=== PATIENT | female | born 2000 | race Two or more races ===

== ENCOUNTER 2023-09-20 20:15 | Emergency (ER) | payer OTHER, SELFPAY ==
[2023-09-20 21:05] VITALS: BP 136/65; PULSE 71; RESP 18; TEMP 36.7; O2SAT 99; BMI 30.9
== END 2023-09-21 00:48 | disposition left against medical advice (07) ==
LOC: HO.ED 09-21 00:45
PROVIDERS: Emergency Provider Emergency Medicine
DX: R50.9 Fever, unspecified (principal); R60.9 Edema, unspecified
CPT/HCPCS: 99281

== ENCOUNTER 2024-07-11 22:42 | Emergency (ER) | payer OTHER, SELFPAY ==
--- NOTE | ~2024-07-11 | US_ITS ---
EXAMINATION: Ultrasound pelvis transabdominal transvaginal. Ultrasound renal bilateral. CLINICAL INDICATION: Low abdominal and back pain. Suprapubic pain with nausea. COMPARISON: None. TECHNIQUE: Transabdominal and transvaginal imaging of pelvis is performed. In addition retroperitoneal ultrasound with attention the kidneys was performed. FINDINGS: PELVIC ULTRASOUND: The uterus is anteverted, anteflexed and measures 7.4 x 2.8 x 4.0 cm. It is homogeneous in echotexture with no focal lesion seen. Endometrial thickness measures 0.6 cm. Right ovary measures 2.9 x 2.7 x 2.6 cm and volume 10.7 mL and appears unremarkable. Left ovary measures 2.4 x 2.2 x 2.3 cm in volume 6.4 mL. No focal lesion seen. There is normal arterial and venous flow seen to both ovaries on Doppler exam. There is no free fluid in the cul-de-sac. RENAL ULTRASOUND: Right kidney: The right kidney measures 10.5 x 5.5 x 5.6 cm. There is normal cortical thickness. There are tiny echogenic foci without Trinkle artifact. No caliectasis or hydronephrosis seen. Left kidney: The left kidney measures 10.4 x 6.3 x 6.0 cm. There is normal cortical thickness without cystic or solid mass. Tiny echogenic foci without twinkle artifact. No hydronephrosis or caliectasis. US/US pelvic and transvaginal IMPRESSION: Unremarkable pelvic ultrasound. Unremarkable renal ultrasound. Electronically signed by: Erwin Beltran MD 07/12/2024 08:27 AM DIV[facility]
--- NOTE | ~2024-07-11 | US_ITS ---
EXAMINATION: Ultrasound pelvis transabdominal transvaginal. Ultrasound renal bilateral. CLINICAL INDICATION: Low abdominal and back pain. Suprapubic pain with nausea. COMPARISON: None. TECHNIQUE: Transabdominal and transvaginal imaging of pelvis is performed. In addition retroperitoneal ultrasound with attention the kidneys was performed. FINDINGS: PELVIC ULTRASOUND: The uterus is anteverted, anteflexed and measures 7.4 x 2.8 x 4.0 cm. It is homogeneous in echotexture with no focal lesion seen. Endometrial thickness measures 0.6 cm. Right ovary measures 2.9 x 2.7 x 2.6 cm and volume 10.7 mL and appears unremarkable. Left ovary measures 2.4 x 2.2 x 2.3 cm in volume 6.4 mL. No focal lesion seen. There is normal arterial and venous flow seen to both ovaries on Doppler exam. There is no free fluid in the cul-de-sac. RENAL ULTRASOUND: Right kidney: The right kidney measures 10.5 x 5.5 x 5.6 cm. There is normal cortical thickness. There are tiny echogenic foci without Trinkle artifact. No caliectasis or hydronephrosis seen. Left kidney: The left kidney measures 10.4 x 6.3 x 6.0 cm. There is normal cortical thickness without cystic or solid mass. Tiny echogenic foci without twinkle artifact. No hydronephrosis or caliectasis. US/US renal BI IMPRESSION: Unremarkable pelvic ultrasound. Unremarkable renal ultrasound. Electronically signed by: Erwin Beltran MD 07/12/2024 08:27 AM [facility]
--- NOTE | ~2024-07-11 | US_ITS ---
EXAMINATION: Ultrasound pelvis transabdominal transvaginal. Ultrasound renal bilateral. CLINICAL INDICATION: Low abdominal and back pain. Suprapubic pain with nausea. COMPARISON: None. TECHNIQUE: Transabdominal and transvaginal imaging of pelvis is performed. In addition retroperitoneal ultrasound with attention the kidneys was performed. FINDINGS: PELVIC ULTRASOUND: The uterus is anteverted, anteflexed and measures 7.4 x 2.8 x 4.0 cm. It is homogeneous in echotexture with no focal lesion seen. Endometrial thickness measures 0.6 cm. Right ovary measures 2.9 x 2.7 x 2.6 cm and volume 10.7 mL and appears unremarkable. Left ovary measures 2.4 x 2.2 x 2.3 cm in volume 6.4 mL. No focal lesion seen. There is normal arterial and venous flow seen to both ovaries on Doppler exam. There is no free fluid in the cul-de-sac. RENAL ULTRASOUND: Right kidney: The right kidney measures 10.5 x 5.5 x 5.6 cm. There is normal cortical thickness. There are tiny echogenic foci without Trinkle artifact. No caliectasis or hydronephrosis seen. Left kidney: The left kidney measures 10.4 x 6.3 x 6.0 cm. There is normal cortical thickness without cystic or solid mass. Tiny echogenic foci without twinkle artifact. No hydronephrosis or caliectasis. US/US pelvic ovarian doppler IMPRESSION: Unremarkable pelvic ultrasound. Unremarkable renal ultrasound. Electronically signed by: Erwin Beltran MD 07/12/2024 08:27 AM [facility]
[2024-07-11 23:37] VITALS: BP 105/54; PULSE 82; RESP 16; TEMP 36; O2SAT 98; BMI 32.1
[2024-07-12 00:07] LABS: MANUAL DIFF FLAG NO
[2024-07-12 00:09] LABS: Basophils Absolute Auto 0.1 X10*3/uL (0.0-0.2); Basophils Percent Auto 0.5 % (0-2); Eosinophils Absolute Auto 0.2 X10*3/uL (0.0-0.4); Hematocrit 39.8 % (37.0-47.0); Hemoglobin 13.6 g/dl (12.0-16.0); Imm Gran Abs Auto 0.04 X10*3/uL (0.00-0.03); Imm Gran Pct Auto 0.4 % (0.0-0.4); Lymphocytes Percent Auto 41.4 % (20-40); Mean Corpuscular HGB Conc 34.2 g/dl (31.0-35.0); Mean Corpuscular Hemoglobin 29.6 pg (27.0-33.0); Mean Corpuscular Volume 86.7 fL (80.0-98.0); Mean Platelet Volume 9.3 fL (9.4-12.3); Monocytes Absolute Auto 0.8 X10*3/uL (0.1-1.2); Monocytes Percent Auto 8.3 % (2-11); Neutrophils Absolute Auto 4.6 x10*3/uL (2.0-8.3); Neutrophils Percent Auto 47.4 % (45-73); Platelet Count 313 X10*3/uL (160-400); Red Blood Count 4.59 X10*6/uL (4.20-5.50); Red Cell Distribution Width 12.6 % (11.0-16.0); White Blood Count 9.6 X10*3/uL (4.8-10.8)
[2024-07-12 00:21] LABS: Alanine Aminotransferase 23 U/L (0-31); Albumin Level 4.3 g/dL (3.5-5.0); Alkaline Phosphatase 61 U/L (39-117); Anion Gap 12 (12-20); Aspartate Amino Transferase 21 U/L (5-31); Bilirubin Total 0.2 mg/dL (0.0-1.0); Blood Urea Nitrogen 13 mg/dL (9-16); Calcium 9.6 mg/dL (8.4-10.2); Carbon Dioxide 23 mmol/L (22-29); Chloride 109 mmol/L (96-108); Estimated Glomerular Filt Rate > 60; Glucose Random 110 mg/dL (60-115); Potassium 3.8 mmol/L (3.3-5.1); Sodium 140 mmol/L (135-145); Total Protein 7.7 g/dL (6.5-8.0)
[2024-07-12 03:52] VITALS: BP 127/60; PULSE 80; RESP 16; TEMP 37.1; O2SAT 99
--- NOTE | 2024-07-12 03:52 | MHC.EDTECH ---
This pct just assumed care of Patient ,vitals taken ,Patient is aware we need a urine sample .
[2024-07-12 05:15] LABS: UPreg QC Valid YES; Urine Pregnancy NEGATIVE (NEGATIVE)
[2024-07-12 06:33] VITALS: BP 120/69; PULSE 67; RESP 16; TEMP 36.8; O2SAT 97
[2024-07-12 06:39] LABS: Appearance Urine Turbid; Color Urine Yellow; Glucose Urine UA Negative (Negative); Leukocyte Esterase Urine Negative (Negative); Nitrite Urine Negative (Negative); PH 5.5 (5.0-9.0); Specific Gravity - Urine >= 1.030 (1.005-1.025); Urine Blood Negative (Negative); Urine Ketones Negative (Negative); Urine Protein Negative (Neg-Trace)
[2024-07-12 06:44] LABS: Bacteria Urine 3+ (None Seen); Hyaline Casts Urine 0-2 /LPF (0-2); RBC Urine 0-2 /HPF (0-2); Squamous Epithelial Cell Urine >20 /HPF (0-2); UACC Culture Trigger YES
--- NOTE | 2024-07-12 07:01 | ED_ITS ---
HPI - Abdominal Pain General Chief Complaint: Abdominal Pain Stated Complaint: lower abdominal pain Time Seen by Provider: 07/12/24 06:35 Source: patient, RN notes reviewed and old records reviewed Mode of arrival: ambulatory History of Present Illness ED Provider: Peggy Kent PA-C HPI narrative: 23-year-old female no significant medical history presenting to the ED complaining lower abdominal/suprapubic pain x 3 days described as feeling like a pulled muscle. Also reports low back. Denies fever, chills, nausea, vomiting, dysuria/hematuria, vaginal bleeding/discharge. Denies injury/trauma Related Data Allergies Allergy/AdvReac Type Severity Reaction Status Date / Time No Known Allergies Allergy Verified 07/11/24 23:43 Review of Systems Review of Systems Yes all other systems are reviewed and are negative Constitutional: Reports as per [facility] Past Medical History Attestation statement: The following information was validated with the patient. Source: old records reviewed Social History Social History Use of substances other than those prescribed or required for medical reasons: No Advance Directives: No Advance Directives Information Provided: Yes Do you have a plan to hurt others: No Plan Patient : No Physical Exam ED Vital Signs: Vital Signs - 24 hr 07/11/24 23:37 07/12/24 03:52 07/12/24 06:33 Temperature 96.8 F 98.7 F 98.2 F Pulse Rate 82 80 67 Respiratory Rate 16 16 16 Blood Pressure 105/54 L 127/60 120/69 Pulse Oximetry 98 99 97 Oxygen Delivery Method Room Air Room Air Room Air 07/12/24 09:02 07/12/24 09:04 Temperature 98.2 F 98.2 F Pulse Rate 70 86 Respiratory Rate 18 18 Blood Pressure 118/86 118/86 Pulse Oximetry 99 99 Oxygen Delivery Method Room Air Room Air BMI result Body Mass Index 32.1 Const General: cooperative, healthy appearing and no acute distress Orientation/consciousness: patient oriented x3 Limitations: no limitations HENMT Head: Yes normal to inspection and Yes atraumatic Ears: hearing grossly normal bilaterally General nose exam: Normal external nose present Face and sinus: Yes normal facial exam Eyes General: appearance normal, both eyes and all related structures EOM: EOMs intact bilaterally Neck Neck: Yes normal visual inspection and Yes no meningeal signs Resp Effort & Inspection: normal respiratory effort and no respiratory distress Cardio Rate: regular rate GI Inspection: Yes normal to inspection Palpation (GI): Soft to palpation, nontender, no guarding and not rigid General: Yes no CVA tenderness Back/Spine/Pelvis Back: no CVA tenderness Skin Rashes: no rashes Wounds: no wounds Neuro General: patient oriented x3, tone normal and no meningeal signs Cranial nerves: Yes CN's II-XII intact bilaterally Gait exam (Neuro): Normal gait present Extrem General: Yes normal to inspection Course Course Course Narrative: -0847--labs reassuring. UA contaminated will hold on antibiotic initiation until culture results. negative US pelvic and transvaginal//US renal BI IMPRESSION: Unremarkable pelvic ultrasound. Unremarkable renal ultrasound. Results discussed with patient including worrisome signs and symptoms and strict return precautions, and when to return to the emergency department. They verbalized understanding and feel safe for discharge at this time. Medical Decision Making Medical Decision Making [facility] Narrative: 23-year-old female no significant medical history presenting to the ED complaining lower abdominal/suprapubic pain x 3 days described as feeling like a pulled muscle. On exam vital signs stable, NAD, nontoxic appearing, abdomen soft/nontender, no CVAT. Concern for ovarian cyst vs UTI vs ? Menstrual cramping vs . Lower suspicion for torsion or TOA. Rule out ectopic. Lower suspicion for appendicitis/diverticulitis/colitis. Renal stone on differential Plan: Labs, UA, pelvic and renal ultrasound, pain management, re-evaluate Please refer to course for remaining clinical decision making, interpretation of labs/imaging results, and discussions with consultants and/or family members. Differential Diagnosis Differential Diagnoses: The differential diagnosis associated with the presentation includes As above Admission/Observation Consideration of admission/observation: Escalation of care including admission/observation considered Lab Data [facility] Lab Attestation statement: I reviewed the patient's lab results. 07/12/24 00:02 07/12/24 00:02 Labs: Lab Results 07/12/24 07/12/24 Range/Units 00:02 04:52 WBC 9.6 (4.8-10.8) X10*3/uL RBC 4.59 (4.20-5.50) X10*6/uL Hgb 13.6 (12.0-16.0) g/dl Hct 39.8 (37.0-47.0) % MCV 86.7 (80.0-98.0) fL MCH 29.6 (27.0-33.0) pg MCHC 34.2 (31.0-35.0) g/dl RDW 12.6 (11.0-16.0) % Plt Count 313 (160-400) X10*3/uL MPV 9.3 L (9.4-12.3) fL Immature Gran % (Auto) 0.4 (0.0-0.4) % Neut % (Auto) 47.4 (45-73) % Lymph % (Auto) 41.4 H (20-40) % [place] % (Auto) 8.3 (2-11) % Eos % (Auto) 2.0 (0-4) % Baso % (Auto) 0.5 (0-2) % Lymph # (Auto) 4.0 (1.2-4.9) X10*3/uL [place] # (Auto) 0.8 (0.1-1.2) X10*3/uL Eos # (Auto) 0.2 (0.0-0.4) X10*3/uL Baso # (Auto) 0.1 (0.0-0.2) X10*3/uL Abs Immat Gran (auto) 0.04 H (0.00-0.03) X10*3/uL Absolute Neuts (auto) 4.6 (2.0-8.3) x10*3/uL Absolute Nucleated RBC 0.000 (0.0-0.012) X10*3/uL Nucleated RBC % (auto) 0.0 (0.0-0.2) /100WBC Sodium 140 (135-145) mmol/L Potassium 3.8 (3.3-5.1) mmol/L Chloride 109 H (96-108) mmol/L Carbon Dioxide 23 (22-29) mmol/L Anion Gap 12 (12-20) BUN 13 (9-16) mg/dL Creatinine 0.65 (0.5-1.4) mg/dL Estim Creat Clear Calc 151.0 Estimated GFR > 60 Random Glucose 110 (60-115) mg/dL Calcium 9.6 (8.4-10.2) mg/dL Total Bilirubin 0.2 (0.0-1.0) mg/dL AST 21 (5-31) U/L ALT 23 (0-31) U/L Alkaline Phosphatase 61 (39-117) U/L Total Protein 7.7 (6.5-8.0) g/dL Albumin 4.3 (3.5-5.0) g/dL Lipase 27 (8-78) U/L Urine Color Yellow Urine Appearance Turbid Urine pH 5.5 (5.0-9.0) Ur Specific [place] >= 1.030 H (1.005-1.025) Urine Protein Negative (Neg-Trace) mg/dL Urine Glucose (UA) Negative (Negative) mg/dL Urine Ketones Negative (Negative) mg/dL Urine Blood Negative (Negative) Urine Nitrite Negative (Negative) Ur Leukocyte Esterase Negative (Negative) Urine RBC 0-2 (0-2) /HPF Urine WBC 6-10 H (0-5) /HPF Ur Squamous Epith Cells >20 (0-2) /HPF Urine Bacteria 3+ (None Seen) Hyaline Casts 0-2 (0-2) /LPF Urine Test NEGATIVE (NEGATIVE) Independent Interpretation I performed an independent interpretation of an: Ultrasound Radiology Impression Discussion of test interpretation with radiology: I have reviewed the radiologist's reading. External Record Review External record reviewed: Inpatient record, Office record, Outpatient record, Prior outpatient labs, Prior outpatient radiology, Primary care record and Outside ED record Tests considered The following testing was considered but not selected: As above Prescription Management I considered prescription management with: Pain Medication Social Determinants Patient?s care significantly limited by Social Determinants of Health including: Other Social Determinant of Health Medications Administered Discontinued Medications Generic Name Dose Route Start Last Admin Trade Name Freq PRN Reason Stop Dose Admin Ketorolac Tromethamine 30 mg 07/12/24 07:04 07/12/24 07:12 Ketorolac Tromethamine 30 Mg/Ml Vial IM 07/12/24 07:05 30 mg ONCE ONE Administration Discharge Plan Discharge Clinical Impression: Abdominal pain, suprapubic Patient Disposition: Home, Self-Care Instructions: Abdominal Pain (ED) Additional Instructions: Your blood work and ultrasound are reassuring Please follow-up with your primary care doctor as well as your OBGYN If her symptoms persist or worsen, pain becomes more constant, unbearable, you have persistent nausea/vomiting or fever return to the ED Referrals: [facility] [place] Women's Services [Provider Group] Interventions: ED Discharge Assessment Last Done: 07/12/24 09:04 Discharge Date/Time: 07/12/24 09:04 Print Language: [place]
[2024-07-12 07:04] LABS: Lipase 27 U/L (8-78)
[2024-07-12] MEDS: Ketorolac Tromethamine 30 MG/ML VIAL IM (07:12)
--- NOTE | 2024-07-12 07:15 | PC.NURSE ---
Resumed care of pt at 0700. Pt up in bed with family at bedside, a/ox4, no increase wob/sob noted, lung sounds cta bilaterally, s1 and s2 heard, abdomen soft, tender on palpation. Pt states mid to lower abdominal pain/lower back pain. Medicated per SEP. Pt updated on plan of care, call vidal within reach, all needs met at this time.
[2024-07-12 09:02] VITALS: BP 118/86; PULSE 70; RESP 18; TEMP 36.8; O2SAT 99
[2024-07-12 09:04] VITALS: BP 118/86; PULSE 86; RESP 18; TEMP 36.8; O2SAT 99
== END 2024-07-12 09:04 | disposition home or self-care (01) ==
PROVIDERS: Physician Assistant; Emergency Provider Emergency Medicine
DX: R10.30 Lower abdominal pain, unspecified (principal)
CPT/HCPCS: 36415; 76775; 76830; 76856; 80053; 81001; 81025; 83690; 85025; 87086; 93975; 96372; 99284; J1885

== ENCOUNTER 2024-09-25 10:05 | Outpatient (AMB) | payer OTHER, SELFPAY ==
--- NOTE | 2024-09-25 10:37 | MHC.PC.OV ---
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 Could not recall any history of trauma to affected area. Complains of pain, discomfort when she bends forward, but denies chest pain or shortness of breath PFSH Medical History (Updated 09/25/24 @ 11:17 by Nellie Mckeon MD) Mass of anterior abdominal wall Depression with anxiety Surgical History (Updated 09/25/24 @ 11:08 by Nellie Mckeon MD) No pertinent past surgical history Family History (Updated 09/25/24 @ 11:07 by Nellie Mckeon MD) Mother Substance use disorder Mental health disorder Depression with anxiety Sister Substance use disorder Mental health disorder Depression with anxiety Maternal Grandmother Mental health disorder Depression with anxiety Essential hypertension Hypercholesterolemia CAD (coronary artery disease) Alzheimer's disease Maternal Aunt Mental health disorder Depression with anxiety Social History Housing: Apartment Patient Tobacco Use Status: Never used Tobacco e-Cigarette/Vaping Use: Former Use service: No Current occupational status: employed Cognitive needs: No Hearing needs: No Vision needs: Yes Female Reproductive History Menstrual Other: [facility]es [facility] , sees OBANANDN, states Pap smear was done earlier this year Questionnaire PHQ-9 Over the last 2 weeks, how often have you been bothered by any of the following problems? 1. Little interest or pleasure in doing things: several days 2. Feeling down, depressed, or hopeless: several days 3. Trouble falling or staying asleep, or sleeping too much: nearly every day 4. Feeling tired or having little energy: several days 5. Poor appetite or overeating: nearly every day 6. Feeling bad about yourself - or that you are a failure or have let yourself or your family down: several days 7. Trouble concentrating on things, such as reading the newspaper or watching television: not at all 8. Moving or speaking so slowly that other people could have noticed. Or the opposite - being so fidgety or restless that you have been moving around a lot more than usual: not at all 9. Thoughts that you would be better off or of hurting yourself in some way: not at all Total score: 10 Depression Screening Interpretation: Positive Depression Screening Follow-up: Existing condition and Declines treatment (Uses marijuana to control symptoms, helping) Depression Screening Done: Yes Source: Developed by Drs. Joey Ghotra, Madelyn Plummer, Petros Peck and colleagues, with an educational lise from [employer]. Thrive Questionnaire Date Thrive assessed: 09/25/24 I am a: Patient What is your living situation today?: I have a steady place to live Within the past 12 months, did the food you bought not last and you didn't have the money to get more?: Sometimes True Within the past 12 months, did you worry whether your food would run out before you got money to buy more?: Sometimes True Do you have trouble paying for medicines?: No Do you have trouble getting transportation to medical appointments?: No Do you have trouble paying your heating and electricity bill?: No Do you have trouble taking care of your child, family member or friend?: No Do you have trouble with day-to-day activities such as bathing, preparing meals, shopping, managing finances, etc.?: No Are you currently unemployed and looking for a job?: No Are you interested in more education?: Yes Please select the resources that you would like help with: None Currently or been in a relationship where the following occur: I choose not to answer THRIVE Score: 2 AUDIT C Alcohol Use Questionnaire (AUDIT-C) 1. How often do you have a drink containing alcohol?: Never Total Score: 0 WENDY-7 AMB Questionnaire WENDY-7 Date WENDY - 7 assessed: 09/25/24 Feeling nervous, anxious, or on edge: 1 = Several days Not being able to stop or control worryin = More than half the days Worrying too much about different things: 2 = More than half the days Trouble relaxin = Several days Being so restless that it is hard to sit still: 1 = Several days Becoming easily annoyed or irritable: 2 = More than half the days Feeling afraid as if something awful might happen: 1 = Several days Total WENDY-7 score (0-4 normal; 5-9 mild; 10-14 moderate; 15-21 severe): 10 Source: Developed by Drs. Joey Ghotra, Madelyn Plummer, Petros Peck and colleagues, with an educational lise from [employer]. WENDY-7 Assessment Billing WENDY-7 Assessment Tool: WENDY-7 Assessment 82490 (Uses marijuana to help control her anxiety attacks which has been helping, per patient) Review of Systems Const Reports no additional complaints ENT Details: Goes to [facility] in [place] cleaning every 6 Reports no additional complaints Card Denies chest pain, Denies chest pain with activity, Denies rapid heart rate, Denies irregular heart rhythm, Denies lightheadedness and Denies dyspnea Resp Denies cough, Denies pain on inspiration and Denies dyspnea GI Denies bloating, Denies change in bowel habits, Denies change in stool character and Denies dyspepsia Details: s Reports no additional complaints Musc Reports as per HPI Neuro Reports no additional complaints Psych Reports as per HPI Physical exam (Primary Care) Vital Signs: Last Vital Signs Temp 98.0 F 09/25/24 10:40 Pulse 95 09/25/24 10:40 BP 120/70 09/25/24 10:40 Pulse Ox 95 09/25/24 10:40 Oxygen Delivery Method Room Air 09/25/24 10:40 BMI result Body Mass Index 31.9 Tobacco/Smoking Status: Tobacco use Status Tobacco use date assessed 09/25/24 09/25/24 10:51 Patient Tobacco Use Status Never used Tobacco 09/25/24 10:51 e-Cigarette/Vaping Use Former Use 09/25/24 10:51 PHQ-9: PHQ-9 Score PHQ-9: Total score 15 09/25/24 11:11 Depression Screening Interpretation: Positive Depression Screening Follow-up: Existing condition and Declines treatment (Uses marijuana to control symptoms, helping) Thrive Assessment: Date of Thrive Assessment Date Thrive assessed 09/25/24 09/25/24 10:51 Currently or been in a relationship where the following occur: I choose not to answer Const General: no acute distress and alert Orientation/consciousness: patient oriented x3 HENMT Ears: external ears normal General nose exam: Normal external nose present Mouth: Normal oral and palatal mucosa present, oropharynx normal and moist mucous membranes Eyes General: appearance normal, both eyes and all related structures Neck Neck: Yes full ROM, Yes no lymphadenopathy and Yes supple Resp Effort & Inspection: normal respiratory effort and able to speak in complete sentences Auscultation: clear to auscultation bilaterally Cardio Rate: regular rate Rhythm: regular rhythm Heart sounds: S1 normal heart sound present and S2 normal heart sound present GI Other: Soft fluctuant mass on left upper quadrant, nontender to palpation, no overlying erythema or increased warmth Palpation (GI): Soft to palpation and nontender Auscultation: normal bowel sounds Neuro General: patient oriented x3, gait normal, tone normal, moves all extremities, Normal light touch and pain sensation and no focal motor deficits Cranial nerves: Yes CN's II-XII intact bilaterally Cognition (Neuro): normal cognition Extrem General: Yes full ROM, Yes no joint enlargement, Yes no clubbing, cyanosis or edema and Yes no calf tenderness Psych Appearance: grossly normal and well kempt Mental Status: mental status grossly normal Speech and movement: Normal speech and movement present Affect: normal affect Attitude: cooperative Thought process: Normal thought process present Thought content: Normal thought content present Coding Level of Care Code New Pt Level 3 (06247) Diagnoses Mass of anterior abdominal wall R22.2 Depression with anxiety F41.8 Additional Codes WENDY-7 Assessment Billing - WENDY-7 Assessment Tool: WENDY-7 Assessment 19340 ([id number]) Assessment & Plan Assessment & Plan (1) Mass of anterior abdominal wall: Code(s): R22.2 - Localized swelling, mass and lump, trunk Category: Medical Plan: Will order ultrasound of abdomen, for further evaluation management, (2) Depression with anxiety: Comment: Uses marijuana which helps control her anxiety and depression Code(s): F41.8 - Other specified anxiety disorders Category: Medical Plan: Patient states that she is managing her depression anxiety well with using marijuana Orders: Orders US abdomen complete Today R22.2 - Localized swelling, mass and lump, trunk
[2024-09-25 10:40] VITALS: BP 120/70; PULSE 95; TEMP 36.7; O2SAT 95; BMI 31.9
--- OUTSIDE RECORDS SUMMARY | 2024-09-25 11:37 | XMS_ITS ---
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 Medication SIG (Take, Route, Frequency, Duration) Notes Start Date End Date Status Lotrisone 1-0.05% 1 application to affected area externally Twice a day for 7 days 11/08/2021 Unknown Fluconazole 150 MG 1 tablet PO now and in 3d for 3 days 10/19/2021 Unknown metroNIDAZOLE 500 MG 1 tablet Orally Twi ce a day for 7 days 10/19/2021 Unknown MetroGel-Vaginal 0.75 % 1 application at bedtime Vaginal Once a day for 5 day(s) 03/29/2021 Unknown NuvaRing 0.12-0.015 MG/24HR 1 ring Vagin al _insert for 3w, remove fourth week for 84 days 07/11/2016 Unknown Multivitamin Adult - Orally Unknown Encounters Encounter Location Date Provider Diagnosis [facility] [place] [address] 02/15/2024 CONG RAPP Encounter for gynecological examination [...] Follow Up: 1 Year, Reason: Y early Puller Through Exam Provider Name:CONG Vicente, 04/17/2025 03:00:00 PM, [address], [address], [place], [address], Progress Notes * PANCHOCHRISCHRISTINEB:11/2000 (23 yo F)Acc No.[id number]:02/15/2024 PROGRESS NOTES Patient:?PANCHO CHRIS CHRISTINE Provider:?CONG RAPP MD :2000???Age:23 Y???Sex:Female D ate:02/15/2024 Address:[address] [place], [place] [id number] Subjective: * Chief Complaints: * ???1. 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 ?She has been in state of good health since her last exam. She has the following concerns: ?She has received just one dose of the Moderna Covid-19 vaccine. ?Relationship status: *partnered for nearly 2 years. She is sexually active. Sexual partner(s): male. She does *not wish to have STI testing. She accepts CDC-recommended GC/CT screening. ?Menses: *monthly, lasting 4-7 days, moderate to light flow. No intermenstrual bleeding. ?Contraception: *Nuvaring - happy and consistent. Would like refills. ?The patient has never had an abnormal pap smear. Her most recent pap smear was 10/27/20 - NIL . Next due for pap in 2023. ?The patient does* exercise. She exercises x 1 days/week by walking/hiking. * ROS:?Annual Puller Through Exam ROS:?Bowel habit changes?denies.?Bladder symptoms?denies.?Vaginal discharge, unusual?denies.?Vaginal itch or odor?denies.?weight or appetite changes?denies.?Chest pains, SOB?denies.?depression?denies.?Breast:?Denies?Breast lump.?Denies?Nipple discharge.?Hematology:?Denies?Swollen glands.?Skin:?Patient denies?changing moles.?Psychiatric:?Denies?Anxiety.? * Medical History:?Excessive a nd frequent menstruation with irregular cycle, Superficial (introital) dyspareunia, Unspecified abdominal pain, Gonococcal infection of lower genitourinary tract, unspecified, Other specified abnormal uterine and vaginal bleeding, Mastodynia, COVID-19. * Puller Through History:?/ Para?0/0.?Sexual activity?currently sexually active.?Last Pap Smear:?10/27/2020 NIL.?Mammogram:?not due per age.?LMP and menses?11/16/2022, 04/27/2022, 03/27/2022, 10/25/2021, 06/20/22, 05/2021, 03/15/2021, 11/10/20, regular.?History of STD's:?Gonorrhea Treated 07/16/20.? Control:?Nuva Ring.?Gardasil:?series completed.? * OB History:?Total pregnancies?.? * Medications:?Unknown Multivi tamin Adult - Tablet Orally , Unknown NuvaRing 0.12- 0.015 MG/24HR Ring 1 ring Vaginal _insert for [...] bedtime Vaginal Once a day Objective: * Vitals:? * Examination: ???General Examination: ?GENERAL APPEARANCE:?in no acute distress,well developed, well nourished,distributed generation project manager present in room.?HEAD:?normocephalic, atraumatic.?NECK/THYROID:?neck supple, full range of motion,thyroid normal.?LYMPH NODES:?no axillary or supraclavicular adenopathy.?SKIN:?normal,good turgor,no rashes,no suspicious lesions.?BREASTS:?normal,no dimpling,no discharge,no drainage,no masses palpable bilaterally,nontender.?ABDOMEN:?soft, non-tender, non distended without masses or hepatosplenomegay.?BACK:?no costovertebral angle tenderness.?FEMALE GENITOURINARY:?Vulva without lesions or masses, vagina pink without abnormal discharge, lesions or masses, cervix appears normal and is not tender to palpation, uterus is normal size, mobile, nontender and anteverted, ovaries are not palpable.?NEUROLOGIC:?alert and oriented,gait normal.?PSYCH:?alert, oriented,cognitive function intact,cooperative with exam,good eye contact,mood/affect full range,speech clear.? Assessment: * Assessment: 1.?Encounter for gynecologic al examination (general) (routine) without abnormal findings - Z01.419 (Primary)???2.?Encounter for screening for infections with a predominantly sexual mode of transmission - Z11.3??? Plan: * Treatment: * Follow Up:?1 Year (Reason: Y early Puller Through Exam) * Images: Wenceslaoing Information: * Visit Code:? 04346 Preventive Care Est Pt. Age 18-39. * Procedure Codes:? 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 She has been in state [...] General Examination GENERAL APPEARANCE: in no ac [place] distress, well developed, well nourished, distributed generation project manager present in room HEAD: normocephalic, atrau [...]
--- OUTSIDE RECORDS SUMMARY | 2024-09-25 11:37 | XMS_ITS ---
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 [address] [place] [address] 03/04/2024 CONG RAPP Encounter for gynecological examination [...] Follow Up: 1 Year, Reason: Y early Interventional Radiology Rn Exam Provider Name:CONG Vicente, 04/17/2025 03:00:00 PM, [address], [address], [place], [address], Progress Notes * CATHERINE DELEONDOB:11/2000 (23 yo F)Acc No.[id number]:03/04/2024 PROGRESS NOTES Patient:?CHRIS DELEON Provider:?CONG RAPP MD :2000???Age:23 Y???Sex:Female D ate:03/04/2024 Address:[address] [place], [place] [id number] Subjective: * Chief Complaints: * ???1. 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 ?She has been in state [...] x 1 days/week by walking/hiking. 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 * Medical History:?Excessive a nd frequent menstruation with irregular cycle, Superficial (introital) dyspareunia, Unspecified abdominal pain, Gonococcal infection of lower genitourinary tract, unspecified, Other specified abnormal uterine and vaginal bleeding, Mastodynia, COVID-19. * Interventional Radiology Rn History:?/ Para?0/0.?Sexual activity?currently sexually active.?Last Pap Smear:?10/27/2020 NIL.?Mammogram:?not due per age.?LMP and menses?11/16/2022, 04/27/2022, 03/27/2022, 10/25/2021, 06/20/22, 05/2021, 03/15/2021, 11/10/20, regular.?History of STD's:?Gonorrhea Treated 07/16/20.? Control:?Nuva Ring.?Gardasil:?series completed.? * OB History:?Total pregnancies?.? Objective: * Vitals:? * Examination: ???General Examination: ?GENERAL APPEARANCE:?in no acute distress,well developed, well nourished,extension course counselor present in room.?HEAD:?normocephalic, atraumatic.?NECK/THYROID:?neck supple, full range [...] * Follow Up:?1 Year (Reason: Y early Interventional Radiology Rn Exam) * Images: Billing Information: * Visit Code:? 07963 Preventive Care Est Pt. Age 18-39. * Procedure Codes:? 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 She has been in state [...] General Examination GENERAL APPEARANCE: in no ac [place] distress, well developed, well nourished, extension course counselor present in room HEAD: normocephalic, atrau matic [...]
--- OUTSIDE RECORDS SUMMARY | 2024-09-25 11:38 | XMS_ITS ---
Author Organization [facility] Address [address] [place] [address] Care Team Providers Care Spice Blender Name Role Phone CONG RAPP Unavailable [phone] Allergies No Known Allergies Results Component Value Reference Range Notes Test, Urine Reviewed date:04/15/2024 02:32:09 PM Interpretation: Performing Lab: Notes/Report: Test, Urine NEG Urinalysis Reviewed date:04/15/2024 02:32:03 PM Interpretation: Performing Lab: Notes/Report: NITRITE NEG PH 6.0 PROTEIN TR S.G 1.015 WBC TR GLUCOSE NEG KETONES NEG UROBILINOGEN NEG BILIRUBIN TR BLOOD NEG Urine Culture, Routine-[id number] Reviewed date:04/18/2024 09:42:37 AM Interpretation: Performing Lab:[facility], [address], [address], [place], Phone - [phone], [facility] Notes/Report: Clinical Information:SRC: URINE Clinical Information:SRC: URINE Urine Culture, Routine Final report Result 1 Mixed urogenital chaya 10,000-25,000 colony forming units per mL No Urine Received TNP Test not performed. Brody top urine tube is for urine culture and is not suitable for urinalysis. TEST: [id number] Urinalysis, Complete [id number] IGP, CtNg, Cultur e Under 30 Reviewed date:04/21/2024 11:18:49 AM Interpretation: Performing Lab:[facility], [address], [address], [place], Phone - [phone], Director - [facility] Notes/Report: Clinical Information:Cervical, LMP: 03/11/24 [id number] LMP / Prev Treat...[id number] Dates / Results....10/27/20 NIL No. of containers..01 ThinPrep Vial DIAGNOSIS: NEGATIVE FOR IN TRAEPITHELIAL LESION OR MALIGNANCY. Specimen adequacy: Satisfact ory for evaluation. No endocervical component is identified. Clinician provided ICD10: Z01.419 Z72.51 Performed by: Cherri barker, Sanding Line Operator (ASCP) . . Note: The Pap smear is a screening test designed to aid in the detection of premalignant and malignant conditions of the uterine cervix. It is not a diagnostic procedure and should not be used as the sole means of detecting cervical cancer. Both false-positive and false-negative reports do occur. . Test Methodology: This liquid based ThinPrep(R) pap test was screened with the use of an image guided system. . The HPV DNA reflex criteria were not met with this specimen result therefore, no HPV testing was performed. . Chlamydia, Nuc. Acid Amp Negative Negative Gonococcus, Nuc. 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 No Points 0 Interpretation Negative Sexual History Question Answer Notes Had sex in the past 12 months (vaginal, oral, or anal)? Yes with Men only Use protection? Yes How often? Most of the time Prevention strategies discussed: Condoms Have you ever had a Sexually transmitted disease ? Yes GC? Yes Last menstrual period 06/23/20 Tobacco use other than smoking: Question Answer Notes Are you an other tobacco user? Yes V apes nicotine for anxiety/stress Section Notes: Raised by MGM Vital Signs Temperature 97.7 degrees Fahrenheit 04/15/20 24 Blood pressure systolic 120 mm Hg 04/15/20 24 Blood pressure diastolic 78 mm Hg 024 Height 64 in 04/15/2024 Weight 191 lbs 04/15/2024 BMI 32.78 kg/m2 04/15/2024 Encounters Encounter Location Date Provider Diagnosis [address] [place] [address] 04/15/2024 CONG RAPP Encounter for gynecological examination (general) (routine) without abnormal findings Z01.419 ; Encounter for screening for infections with a predominantly sexual mode of transmission Z11.3 ; High risk heterosexual behavior Z72.51 ; Encounter for surveillance of vaginal ring hormonal contraceptive device Z30.44 and Feeling of incomplete bladder emptying R39.14 Assessments Encounter Date Diagnosis (ICD Code) Assessment Notes Treatment Notes Treatment Clinical Notes Section Notes 04/15/2024 Encounter for gynecological examination (general) (routine) without abnormal findings (ICD-10 - Z01.419) Discussed cervical cancer screening with cytology every 3 years as per ASCCP guidelines. Advised continued annual pelvic exams. Patient encouraged to increase her level of exercise. SBE technique encouraged/taught. Safe sexual practices and STI prevention discussed. 04/15/2024 Encounter for screening for infections with a predominantly sexual mode of transmission (ICD-10 - Z11.3) 04/15/2024 High risk heterosexual behavior (ICD-10 - Z72.51) 04/15/2024 Encounter for surveillance of vaginal ring hormonal contraceptive device (ICD-10 - Z30.44) No contraindications to combined hormonal contraception use. Symptoms of thromboembolic events weree reviewed using the ACHES acronym. 04/15/2024 Feeling of incomplete bladder emptying (ICD-10 - R39.14) 04/15/2024 Other Plan Of Treatment Medication Medication Name Sig Start Date Stop Date Notes Etonogestrel-Ethinyl Estradi ol 0.12-0.015 MG/24HR [address] for 3 weeks, remove, and replace with a new ring after 7 day break Vaginal for 84 days Treatment Notes Assessment Notes Encounter for gynecological examination (general) (routine) without abnormal findings Discussed cervical cancer screening with cytology every 3 years as per ASCCP guidelines. Advised continued annual pelvic exams. Patient encouraged to increase her level of exercise. SBE technique encouraged/taught. Safe sexual practices and STI prevention discussed. Encounter for surveillance o f vaginal ring hormonal contraceptive device No contraindications to combined hormona l contraception use. Symptoms of thromboembolic events weree reviewed using the ACHES acronym. Next Appt Details Follow Up: 1 Year, Reason: Y early Collect On Delivery Clerk Exam Provider Name:CONG Barker MAYRA Vicente, 04/17/2025 03:00:00 PM, [address], [address], [place], [address], Procedure Notes * Category Sub-Category Detail Notes Wet Mount Clue cells None seen Hyphae No hyphae or buds Trichomonas None seen Progress Notes * MOUNA DELEONB:11/2000 (23 yo F)Acc No.[id number]:04/15/2024 PROGRESS NOTES Patient:?CHRIS DELEON Provider:?CONG RAPP MD :2000???Age:23 Y???Sex:Female D ate:04/15/2024 Address:[address] [place] [address] Subjective: * Chief Complaints: * ??? 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 ?She has been in state of good health since her last exam. She has the following concerns: she gets discomfort in her ovaries - about twice weekly, it is not dependent on her control. She also feels a pressure in her bladder, like she has to void, but she doesn't have to void. She also wonders if she has BV?She has received just one dose of the Moderna Covid-19 vaccine. ?Relationship status: partnered for nearly 2 years. She is sexually active. Sexual partner(s): male. She does not wish to have STI testing. She accepts CDC-recommended GC/CT screening. ?Menses: monthly, lasting 5-7 days, moderate to heavy?flow. No intermenstrual bleeding.? She stopped Nuvaring last month due to insurance issues, but would like to return to using it. ?Contraception: Nuvaring - happy and consistent. Would like refills. ?The patient has never had an abnormal pap smear. Her most recent pap smear was 10/27/20 - NIL . Next due for pap in 2023. ?The patient does exercise. She exercises x 5 days/week by walking/hiking at [facility]. * ROS:?Annual Collect On Delivery Clerk Exam ROS:?Bowel habit changes?denies.?Bladder symptoms?denies.?Vaginal discharge, unusual?denies.?Vaginal itch or odor?denies.?weight or appetite changes?denies.?Chest pains, SOB?denies.?depression? admits, denies SI/HI, never has had those thoughts, would be interested in a therapist.?Breast:?Denies?Breast lump.?Denies?Nipple discharge.?Hematology:?Denies?Swollen glands.?Skin:?Patient denies?changing moles.?Psychiatric:?Admits?Anxiety,?uses breathing exercises, uses cannabis, and an herbal supplement.? * Medical History:? * Collect On Delivery Clerk History:?/ Para?0/0.?Sexual activity?currently sexually active.?Last Pap Smear:?10/27/2020 NIL.?Mammogram:?not due per age.?LMP and menses?03/11/24.?History of STD's:?Gonorrhea Treated 07/16/20.? Control:?Nuva Ring.?Gardasil:?series completed.? * OB History:?Total pregnancies?.? * Surgical History:?Denies Pas t Surgical History * Hospitalization/Major Diagno stic Procedure:?Denies Past Hospitalization * Family History:?Mother: siomn chavez, estranged.?Father: alive, estranged.?Paternal Grand Mother: .?Paternal Grand Father: unknown.?Maternal Grand Mother: alive, heart disease, MS.?Maternal Grand Father: .?Maternal aunt: breast ca pre menocolon ca.? 7 sisters - well 2 brothers - well All share the same mother, but have different fathers. * Social History:?Tobacco Use:?Tobacco Use/Smoking?Are you a?nonsmoker ?Tobacco use other than smoking?Are you an other tobacco user??Yes Vapes nicotine for anxiety/stress ???Sexual History:?Sexual History?Had sex in the past 12 months (vaginal, oral, or anal)??Yes ?with?Men only ?Use protection??Yes ?How often??Most of the time ?Prevention strategies discussed:?Condoms ?Have you ever had a Sexually transmitted disease??Yes ?GC??Yes ?Last menstrual period?06/23/20 ?Details of Sexual History?Are you sexually active??Yes ???Drugs/Alcohol:?Drugs?Have you used drugs other than those for medical reasons in the past 12 months??Yes ?Marijuana??Yes daily, smokes - advised to consider alternative ways to use ?Alcohol Screen (Audit-C)?Did you have a drink containing alcohol in the past year??No ?Points?0 ?Interpretation?Negative ???Miscellaneous:?Children: yes. ?Domestic violence: no. ?Exercise: no. ?Home smoke detector use: yes. ?Living with: boyfriend's parents, boyfriend. ?Marital status: single, in relationship with male partner. 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 ?Sexual abuse: no. ?Sexually active: yes. ?Verbal abuse: no. ???Raised by [facility] [employer]. * Medications:?Not-TakingEtono gestrel-Ethinyl Estradiol 0.12-0.015 MG/24HR Ring INSERT 1 RING VAGINALLY FOR 3WEEKS, REMOVE FOURTH WEEK Not-Taking Etonogestrel-Ethinyl Estradiol 0.12-0.015 MG/24HR Ring INSERT 1 RING VAGINALLY FOR 3WEEKS, REMOVE FOURTH WEEK DiscontinuedFluconazole 150 MG Tablet 1 tablet PO now and in 3d Multivitamin Adult - Tablet Orally NuvaRing 0.12-0.015 MG/24HR Ring 1 ring Vaginal _insert for 3w, remove fourth week Lotrisone 1-0.05% cream 1 application to affected area externally Twice a day Fluconazole 150 MG Tablet 1 tablet PO now and in 3d metroNIDAZOLE 500 MG Tablet 1 tablet Orally Twice a day MetroGel-Vaginal 0.75 % Gel 1 application at bedtime Vaginal Once a day Discontinued Fluconazole 150 MG Tablet 1 tablet PO now and in 3d Discontinued Multivitamin Adult - Tablet Orally Discontinued NuvaRing 0.12-0.015 MG/24HR Ring 1 ring Vaginal _insert for 3w, remove fourth week Discontinued Lotrisone 1-0.05% cream 1 application to affected area externally Twice a day Discontinued Fluconazole 150 MG Tablet 1 tablet PO now and in 3d Discontinued metroNIDAZOLE 500 MG Tablet 1 tablet Orally Twice a day Discontinued MetroGel- Vaginal 0.75 % Gel 1 application at bedtime Vaginal Once a day * Allergies:?N.K.D.A.no[Allerg ies Verified] Objective: * Vitals:?Ht: 64 in, Wt:191lbs , BMI:32.78Index, BP:120/78mm Hg, Temp:97.7F. 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 Assessment: * Assessment: 1.?Encounter for screening f or infections with a predominantly sexual mode of transmission - Z11.3???2.?Encounter for gynecological examination (general) (routine) without abnormal findings - Z01.419 (Primary)???3.?High risk heterosexual behavior - Z72.51???4.?Encounter for surveillance of vaginal ring hormonal contraceptive device - Z30.44???5.?Feeling of incomplete bladder emptying - R39.14??? Plan: * Treatment: ?LAB: Test, Urine (Collection Date & Time - 04/15/2024)* ? Value Reference Range ? Test, Urine NEG ANNABELLE Shen 04/15/2024 01:20:00 PM EDT > ?LAB: Urinalysis (Collection Date & Time - 04/15/2024)* ? Value Reference Range ?NITRITE NEG * ?PH 6.0 * ?PROTEIN TR * ?S.G 1.015 * ?WBC TR * ?GLUCOSE NEG * ?KETONES NEG * ?UROBILINOGEN NEG * ?BILIRUBIN TR * ?BLOOD NEG Notes: Discussed cervical cancer screening with cytology every 3 years as per ASCCP guidelines. Advised continued annual pelvic exams. Patient encouraged to increase her level of exercise. SBE technique encouraged/taught. Safe sexual practices and STI prevention discussed. ??2.?Encounter for surveillance of vaginal ring hormonal contraceptive device? Refill Etonogestrel-Ethinyl Estradiol Ring, 0.12-0.015 MG/24HR, [address] for 3 weeks, remove, and replace with a new ring after 7 day break, Vaginal, 84 days, 3 Ring, Refills 4.? Notes: No contraindications to combined hormonal contraception use. Symptoms of thromboembolic events weree reviewed using the ACHES acronym.??3.?Feeling of incomplete bladder emptying?LAB: Urine Culture, Routine-[id number] * Procedures:?[place]et [place]:?Clue cells?None seen.?Hyphae?No hyphae or buds.?Trichomonas?None seen.? * Procedure Codes:? * Preventive Medicine:?https://www.psychologytoday.com/? for help finding a therapist There are risks to being on estrogen-containing contraception (pills, patch, vaginal ring.) The risks are low for healthy people. The risks increase with the presence of high blood pressure, diabetes, migraines with aura, a family history of clotting disorders and if you are a smoker over the age of 35. It appears to me that you have none of these risk factors. Despite not having risk factors, your risk is not zero. The biggest and scariest risk is the formation of blood clots in your blood vessels, which can lead to heart attacks, stroke, pulmonary embolism and . I want you to be aware of the warning signs using the ACHES acronym. You should call immediately with severe Abdominal pain, Chest pain, severe Headaches, Eye changes, or Severe leg cramps. ?SUNDAY start -- if your period starts on a Sunday, take your first pill that day. If your period starts any other day, wait until Sunday to take your first pill. Then take one pill every day. If you miss one, take it as soon as you think of it. If you miss more than one pill, the -prevention benefit disappears. * Follow Up:?1 Year (Reason: Y early Collect On Delivery Clerk Exam) * Images: Billing Information: * Visit Code:? 01756 Preventive Care Est Pt. Age 18-39. * Procedure Codes:? * Sign off status: Completed true * Provider:?CONG RAPP MD Date:?2023 Generated for Kaylan ocampo/Violetta/eTransmitting on:?09/25/2024 11:37 AM EST History and Physical Notes * HPI (History of Present Illness) Category Sub-Category Detail Notes Category Not es Constitutional Catherine is a 23yo G0 with LMP 03/11/24 who presents for her yearly nurse special annual exam. She has been in state of good health since her last exam. She has the following concerns: she gets discomfort in her ovaries - about twice weekly, it is not dependent on her control. She also feels a pressure in her bladder, like she has to void, but she doesn't have to void. She also wonders if she has BV? She has received just one dose of the Moderna Covid-19 vaccine. Relationship status: partnered for nearly 2 years. She is sexually active. Sexual partner(s): male. She does not wish to have STI testing. She accepts CDC-recommended GC/CT screening. Menses: monthly, lasting 5-7 days, moderate to heavy flow. No intermenstrual bleeding. She stopped Nuvaring last month due to insurance issues, but would like to return to using it. Contraception: Nuvaring - happy and consistent. Would like refills. The patient has never had an abnormal pap smear. Her most recent pap smear was 10/27/20 - NIL . Next due for pap in 2023. The patient does exercise. She exercises x 5 days/week by walking/hiking at [facility]. 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
--- OUTSIDE RECORDS SUMMARY | 2024-09-25 11:38 | XMS_ITS | Patient Health Record ---
Author Organization [facility] Address [address] [place] [address] Care Team Providers Care Controlled Atmospheric Furnace Brazer Name Role Phone CONG RAPP Unavailable [phone] Allergies No Known Allergies Results Component Value Reference Range Notes PDF Report Reviewed date:04/17/2024 01:13:47 PM Interpretation: Performing Lab:[facility], [address], [address], [place], Phone - [phone], [facility] Notes/Report: Clinical Information:SRC: URINE [id number] IGP, CtNg, Cultur e Under 30 Reviewed date:04/21/2024 11:18:49 AM Interpretation: Performing Lab:[facility], [address], [address], [place], Phone - [phone], Director - [facility] Notes/Report: Clinical Information:Cervical, LMP: 03/11/24 [id number] LMP / Prev Treat...[id number] Dates / Results....10/27/20 NIL No. of containers..01 ThinPrep Vial DIAGNOSIS: NEGATIVE FOR IN TRAEPITHELIAL LESION OR MALIGNANCY. Specimen adequacy: Satisfact ory for evaluation. No endocervical component is identified. Clinician provided ICD10: Z01.419 Z72.51 Performed by: Cherri barker, Travel Accommodation Inspector (ASCP) . . Note: The Pap smear [...] Negative Gonococcus, Nuc. Acid Amp Negative Negative Urine Culture, Routine-[id number] Reviewed date:04/18/2024 09:42:37 AM Interpretation: Performing Lab:[facility] Patel, [address], [address], [place], Phone - [phone], Director - [facility] Notes/Report: Clinical Information:SRC: URINE Clinical Information:SRC: URINE Urine Culture, Routine Final report Result 1 Mixed urogenital chaya 10,000-25,000 colony forming units per mL No Urine Received TNP Test not performed. Brody top urine tube is for urine culture and is not suitable for urinalysis. TEST: [id number] Urinalysis, Complete Urinalysis Reviewed date:04/15/2024 02:32:03 PM Interpretation: Performing Lab: Notes/Report: NITRITE NEG PH 6.0 PROTEIN TR S.G 1.015 WBC TR GLUCOSE NEG KETONES NEG UROBILINOGEN NEG BILIRUBIN TR BLOOD NEG Test, Urine Reviewed date:04/15/2024 02:32:09 PM Interpretation: Performing Lab: Notes/Report: Test, Urine NEG PDF Report Reviewed date:04/18/2024 01:17:09 PM Interpretation: Performing Lab:[facility] Patel, [address], [address], [place], Phone - [phone], Director - [facility] Notes/Report: Clinical Information:Cervical, LMP: 03/11/24 [id number] LMP / Prev Treat...[id number] Dates / Results....10/27/20 NIL No. of containers..01 ThinPrep Vial Reason For Referral No Information Medications Medication SIG (Take, Route, Frequency, Duration) [...] for anxiety/stress Section Notes: Raised by MGM Raised by MGM Raised by MGM Raised by MGM Raised by MGM Raised by MGM Raised by MGM Raised by MGM Raised by MGM Raised by MGM Raised by MGM Raised by MGM Raised by MGM Raised by MGM Raised by MGM Raised by MGM Raised by MGM Raised by MGM Raised by MGM Raised by MGM Problems Problem Type SNOMED Code ICD Code Onset Dates Problem Status W/U Status Risk Notes Problem Intermenstrual bleeding - irregular (08328784) Excessive and frequent menstruation with irregular cycle (N92.1) Active confirmed Problem Abnormal vaginal bleeding (008212341) Other specified abnormal uterine and vaginal bleeding (N93.8) Active confirmed Problem Pain in female genitalia on intercourse (04883008) Superficial (introital) dyspareunia (N94.11) Active confirmed Problem COVID-19 (165707013) COVID-19 (U07.1) Active confirmed Vital Signs Temperature 97.7 degrees Fahrenheit 04/15/2024 Blood pressure diastolic 78 mm Hg 04/15/2024 Height 64 in 04/15/2024 Blood pressure systolic 120 mm Hg 04/15/2024 Weight 191 lbs 04/15/2024 BMI 32.78 kg/m2 04/15/2024 Encounters Encounter Location Date Provider Diagnosis [address] [place] [address] 04/15/2024 CONG RAPP Encounter for gynecological examination [...] Clinical Notes Section Notes 04/15/2024 Encounter for screening for infections with a predominantly sexual mode of transmission (ICD-10 - Z11.3) 04/15/2024 Encounter for gynecological examination (general) (routine) without abnormal findings (ICD-10 - Z01.419) Discussed cervical cancer screening with cytology every 3 years as per ASCCP guidelines. Advised continued annual pelvic exams. Patient encouraged to increase her level of exercise. SBE technique encouraged/taught. Safe sexual practices and STI prevention discussed. 04/15/2024 High risk heterosexual behavior (ICD-10 - Z72.51) 04/15/2024 Encounter for surveillance of vaginal ring hormonal contraceptive device (ICD-10 - Z30.44) No contraindications to combined hormonal contraception use. Symptoms of thromboembolic events weree reviewed using the ACHES acronym. 04/15/2024 Feeling of incomplete bladder emptying (ICD-10 - R39.14) 04/15/2024 Other Plan Of Treatment Pending Test Test Name Order Date Test, Urine 08/27/2019 Test, Urine 08/03/2021 Test, Urine 04/27/2022 Urinalysis 04/27/2022 Urinalysis 05/14/2019 Urinalysis 08/05/2019 Urinalysis 08/27/2019 Urinalysis 07/14/2020 Urinalysis 07/19/2020 Urinalysis 10/27/2020 Urinalysis 11/16/2020 ANTI-HEPATITIS C 04/13/2022 ANTI-HEPATITIS C 07/14/2020 ANTI-HEPATITIS C 08/03/2021 HEP. B SURF. AG 04/13/2022 HEP. B SURF. AG 08/03/2021 HEP. B SURF. AG 07/14/2020 SYPHILIS TESTING 04/13/2022 SYPHILIS TESTING 08/03/2021 SYPHILIS TESTING 07/14/2020 HIV AB-AG 4TH GENERATION 07/14/2020 HIV AB-AG 4TH GENERATION 08/03/2021 HIV AB-AG 4TH GENERATION 04/13/2022 Next Appt Details Provider Name:CONG Vicente, 04/17/2025 03:00:00 PM, [address], [address], [place], [address], Insurance Providers Payer Name Payer Address Payer Phone Subscriber Number Group Number Insured Name Patient Relationship to Insured Coverage Start Date Coverage End Date [facility] [address] [address] [place] [address] [id number] CATHERINE DELEON Self - patient is the insured Medications Administered Medication Instructions Date of Administration Dosage Notes CEFTRIAXONE 07/16/2020 250 mg Medical (General) History Medical History History ICD Code Excessive and frequent menstruation with irregular cycle N92.1 Superficial (introital) dyspareunia N94. 11 Unspecified abdominal pain R10.9 Gonococcal infection of lower genitourin rajeev tract, unspecified A54.00 Other specified abnormal uterine and vag inal bleeding N93.8 Mastodynia N64.4 COVID-19 U07.1 Surgical History Surgery Date(Month/Year)
== END 2024-09-25 13:00 | disposition home or self-care (01) ==
PROVIDERS: Visit Provider Internal Medicine
DX: R22.2 Localized swelling, mass and lump, trunk (principal); F41.8 Other specified anxiety disorders

== ENCOUNTER → 2024-09-25 10:05 | Outpatient (BNVA) | payer OTHER, SELFPAY | PROVIDERS: Visit Provider Internal Medicine | DX: R22.2 Localized swelling, mass and lump, trunk (principal); F41.8 Other specified anxiety disorders | CPT/HCPCS: 96127; 99202 ==

== ENCOUNTER 2024-10-24 08:43 | Outpatient (REF) | payer OTHER, SELFPAY ==
--- NOTE | ~2024-10-24 | US_ITS ---
CLINICAL HISTORY: R22.2 - Localized swelling, mass and lump, trunk US abdominal wall nonvascular Comparison: None Findings: Sonographic evaluation in the area of clinical concern anterior abdominal wall left mid abdomen showed no discrete solid or cystic masses, shadowing, calcifications or hernia. Impression: No sonographic correlate to the area of clinical concern left upper mid abdomen abdominal wall This document has been electronically signed by: Gorge Peterson MD on 10/24/2024 10:55:17
== END 2024-10-24 08:44 | disposition home or self-care (01) ==
LOC: HO.US 08:43
PROVIDERS: PCP Internal Medicine; Visit Provider Internal Medicine
DX: R22.2 Localized swelling, mass and lump, trunk (principal)
CPT/HCPCS: 76705

== ENCOUNTER → 2024-10-24 08:45 | Outpatient (BNV) | payer OTHER, SELFPAY | PROVIDERS: PCP Internal Medicine; Visit Provider Radiology Diagnostic Radiology | DX: R22.2 Localized swelling, mass and lump, trunk (principal) | CPT/HCPCS: 76705 ==

== ENCOUNTER 2024-12-10 08:39 | Outpatient (AMB) | payer OTHER, SELFPAY ==
--- NOTE | 2024-12-10 08:44 | A.OFFVIS_ITS ---
Vital Signs 12/10/24 08:51 Height 5 ft 7 in Weight 208 lb BMI 32.6 BP 134/63 Blood Pressure Location Rt brachial Position Sitting Pulse 98 Intake Visit Reasons: Mass~ LUQ Intake Note: Patient referred by pcp Dr. Mckeon for mass on LLQ just below breast. Present for 4-5yrs Patient c/o: painful for the past 4-6mo. No hx of trauma. Abd US: 10-24-2024 Primary Care Coordinator Required: No Accompanied by: francisco Flores Allergies No Known Allergies Allergy (Verified 12/10/24 08:50) Medication List - Last Reconciled 12/10/24 by Mynor Ribera MD No Known Home Meds HPI HPI Mass~ LUQ: Details: [age] year old female referred for a lump on the left upper quadrant of the abdomen. She says that she has felt this for several months now. She describes pain in the area although she thinks that the pain is from her ribs Review of her records show that she had an ultrasound done in September, for this area of the left upper quadrant which did not reveal any mass. She says she continues to feel this ?mass? in the area with discomfort. [facility] Medical History Mass of anterior abdominal wall Depression with anxiety Surgical History No pertinent past surgical history Family History Mother Substance use disorder Mental health disorder Depression with anxiety Sister Substance use disorder Mental health disorder Depression with anxiety Maternal Grandmother Mental health disorder Depression with anxiety Essential hypertension Hypercholesterolemia CAD (coronary artery disease) Alzheimer's disease Maternal Aunt Mental health disorder Depression with anxiety Social History Housing: Apartment Patient Tobacco Use Status: Never used Tobacco e-Cigarette/Vaping Use: Former Use Substance Use Type: Marijuana service: No Current occupational status: employed Cognitive needs: No Hearing needs: No Vision needs: Yes Review of Systems Const Denies chills and Denies fever(s) Card Denies chest pain, Denies dyspnea and Denies dyspnea on exertion Resp Denies cough, Denies dyspnea and Denies dyspnea on exertion GI Denies hematochezia and Denies change in bowel habits Denies hematuria Musc Denies back pain and Denies limited range of motion Neuro Denies focal weakness and Denies convulsions Psych Denies depression and Denies mood swings Physical Exam Const General: comfortable and no acute distress Orientation/consciousness: patient oriented x3 Neck Neck: Yes no lymphadenopathy Resp Auscultation: clear to auscultation bilaterally Cardio Rhythm: regular rhythm GI Other: Vague prominent area of the abdominal wall in the left upper quadrant, not well- defined Palpation (GI): Soft to palpation, nontender and no guarding Neuro General: patient oriented x3 Assessment & Plan Assessment & Plan (1) Mass of anterior abdominal wall: Code(s): R22.2 - Localized swelling, mass and lump, trunk Category: Medical Plan: She has this vague protuberant abdominal mass that seemed to be consistent with subcutaneous fat. She had an ultrasound in September, which did not reveal any obvious mass. I am going to therefore order for a CAT scan to define this mass rule out any other pathology. I will see her in the office after CAT scan to review the findings. She understands the plan and is comfortable with this. Her fiance was with her during the visit. Coding Level of Care Code New Pt Level 3 (33383) Diagnoses Mass of anterior abdominal wall R22.2
[2024-12-10 08:51] VITALS: BP 134/63; PULSE 98; BMI 32.6
--- OUTSIDE RECORDS SUMMARY | 2024-12-10 08:55 | XMS_ITS | Patient Health Record ---
Author Organization [facility] Address [address] [place] [address] Care Team Providers Care Aircraft Engine Mechanic Supervisor Name Role Phone CONG RAPP Unavailable [phone] Allergies No Known Allergies Results Component Value Reference Range Notes Test, Urine Reviewed date:04/15/2024 02:32:09 PM Interpretation: Performing Lab: Notes/Report: Test, Urine NEG Urinalysis Reviewed date:04/15/2024 02:32:03 PM Interpretation: Performing Lab: Notes/Report: NITRITE NEG PH 6.0 PROTEIN TR S.G 1.015 WBC TR GLUCOSE NEG KETONES NEG UROBILINOGEN NEG BILIRUBIN TR BLOOD NEG Urine Culture, Routine-[id number] Reviewed date:04/18/2024 09:42:37 AM Interpretation: Performing Lab:Bc Patel, Yenny Maisha [address], [address], [place], Phone - [phone], Director - [facility] Notes/Report: Clinical Information:SRC: URINE Clinical Information:SRC: URINE Urine Culture, Routine Final report Result 1 Mixed urogenital chaya 10,000-25,000 colony forming units per mL No Urine Received TNP Test not performed. Brody top urine tube is for urine culture and is not suitable for urinalysis. TEST: [id number] Urinalysis, Complete [id number] IGP, CtNg, Cultur e Under 30 Reviewed date:04/21/2024 11:18:49 AM Interpretation: Performing Lab:Bc Patel Yenny [address], [address], [place], Phone - [phone], Director - [facility] Notes/Report: Clinical Information:Cervical, LMP: 03/11/24 [id number] LMP / Prev Treat...[id number] Dates / Results....10/27/20 NIL No. of containers..01 ThinPrep Vial DIAGNOSIS: NEGATIVE FOR IN TRAEPITHELIAL LESION OR MALIGNANCY. Specimen adequacy: Satisfact ory for evaluation. No endocervical component is identified. Clinician provided ICD10: Z01.419 Z72.51 Performed by: Cherri barker, Trade Mark Examiner ([facility]) . . Note: The Pap smear is [...] Report Reviewed date:04/17/2024 01:13:47 PM Interpretation: Performing Lab:Bc Patel, Yenny [employer], [address], [place], Phone - [phone], Director - [facility] Notes/Report: Clinical Information:SRC: URINE PDF Report Reviewed date:04/18/2024 01:17:09 PM Interpretation: Performing Lab:Bc Patel, Yenny [employer], [address], [place], Phone - [phone], Director - [facility] Notes/Report: Clinical Information:Cervical, LMP: 03/11/24 [id number] LMP / Prev Treat...[id number] Dates / Results....10/27/20 NIL No. of containers..01 [...] Risk Notes Problem Intermenstrual bleeding - irregular (82814088) Excessive and frequent menstruation with irregular cycle (N92.1) Active confirmed Problem Abnormal vaginal bleeding (722735330) Other specified abnormal uterine and vaginal bleeding (N93.8) Active confirmed Problem Pain in female genitalia on intercourse (63972993) Superficial (introital) dyspareunia (N94.11) Active confirmed Problem COVID-19 (104454345) COVID-19 (U07.1) Active confirmed Vital Signs Temperature 97.7 degrees Fahrenheit 04/15/2024 Blood pressure diastolic 78 mm Hg 04/15/2024 Height 64 in 04/15/2024 Blood pressure systolic 120 mm Hg 04/15/2024 Weight 191 lbs 04/15/2024 BMI 32.78 kg/m2 04/15/2024 Encounters Encounter Location Date Provider Diagnosis [address] [place] [address] 04/15/2024 CONG RAPP Encounter for gynecological examination [...] Provider Name:CONG Vicente, 04/17/2025 03:00:00 PM, [address] [facility], [address], [place], [address], Insurance Providers Payer Name Payer Address Payer Phone Subscriber Number Group Number Insured Name Patient Relationship to Insured Coverage Start Date Coverage End Date [facility] [address] [address] [place] [address] [id number] CATHERINE DELEON Self - patient is the [...]
--- OUTSIDE RECORDS SUMMARY | 2024-12-10 08:55 | XMS_ITS ---
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 Medications Medication SIG (Take, Route, Frequency, [...] Unknown Encounters Encounter Location Date Provider Diagnosis [facility] [place] [address] 02/15/2024 CONG RAPP Encounter for gynecological examination [...] Follow Up: 1 Year, Reason: Y early Gasoline Finisher Exam Provider Name:CONG Vicente, 04/17/2025 03:00:00 PM, [address], [address], [place], [address], Progress Notes * PANCHOCHRISCHRISTINEB:11/2000 (24 yo F)Acc No.[id number]:02/15/2024 PROGRESS NOTES Patient:?PANCHO CHRIS CHRISTINE Provider:?CONG RAPP MD :2000???Age:23 Y???Sex:Female D ate:02/15/2024 Address:[address] [place], [place] [id number] Subjective: * Chief Complaints: * ???1. 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 ?She has been in state [...] x 1 days/week by walking/hiking. * ROS:?Annual Gasoline Finisher Exam ROS:?Bowel habit changes?denies.?Bladder symptoms?denies.?Vaginal discharge, unusual?denies.?Vaginal itch or odor?denies.?weight or appetite changes?denies.?Chest pains, SOB?denies.?depression?denies.?Breast:?Denies?Breast lump.?Denies?Nipple discharge.?Hematology:?Denies?Swollen glands.?Skin:?Patient denies?changing moles.?Psychiatric:?Denies?Anxiety.? * Medical History:?Excessive a nd frequent menstruation with irregular cycle, Superficial (introital) dyspareunia, Unspecified abdominal pain, Gonococcal infection of lower genitourinary tract, unspecified, Other specified abnormal uterine and vaginal bleeding, Mastodynia, COVID-19. * Gasoline Finisher History:?/ Para?0/0.?Sexual activity?currently sexually active.?Last Pap Smear:?10/27/2020 [...] ?GENERAL APPEARANCE:?in no acute distress,well developed, well nourished,revenue stamp clerk present in room.?HEAD:?normocephalic, atraumatic.?NECK/THYROID:?neck supple, full range [...] * Follow Up:?1 Year (Reason: Y early Gasoline Finisher Exam) * Images: Wenceslaoing Information: * Visit Code:? 07274 Preventive Care Est Pt. Age 18-39. * Procedure Codes:? 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 She has been in state [...] ac sera distress, well developed, well nourished, revenue stamp clerk present in room HEAD: normocephalic, atrau [...]
--- OUTSIDE RECORDS SUMMARY | 2024-12-10 08:55 | XMS_ITS ---
Author Organization [facility] Address [address] [place] [address] Care Team Providers Care Hides Soaker Name Role Phone RAPP, CONG Unavailable [phone] REASON FOR VISIT Annual RN NEUROLOGY Physical Encounters Encounter Location Date Provider Diagnosis [facility] [address] [facility] [address] [place] [address] 03/04/2024 CONG RAPP Encounter for gynecological examination [...] Follow Up: 1 Year, Reason: Y early Executive Director Of Marketing Exam Provider Name:CONG Vicente, 04/17/2025 03:00:00 PM, [address], [address], [place], [address], Progress Notes * CATHERINE DELEONDOB:11/2000 (24 yo F)Acc No.[id number]:03/04/2024 PROGRESS NOTES Patient:?CHRIS DELEON Provider:?CONG RAPP MD :2000???Age:23 Y???Sex:Female D ate:03/04/2024 Address:[address] [place], [place] [id number] Subjective: * Chief Complaints: * ???1. Annual RN NEUROLOGY Physical. 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 ?She has been in state [...] x 1 days/week by walking/hiking. * ROS:?Annual Executive Director Of Marketing Exam ROS:?Bowel habit changes?denies.?Bladder symptoms?denies.?Vaginal discharge, unusual?denies.?Vaginal itch or odor?denies.?weight or appetite changes?denies.?Chest pains, SOB?denies.?depression?denies.?Breast:?Denies?Breast lump.?Denies?Nipple discharge.?Hematology:?Denies?Swollen glands.?Skin:?Patient denies?changing moles.?Psychiatric:?Denies?Anxiety.? * Medical History:?Excessive a nd frequent menstruation with irregular cycle, Superficial (introital) dyspareunia, Unspecified abdominal pain, Gonococcal infection of lower genitourinary tract, unspecified, Other specified abnormal uterine and vaginal bleeding, Mastodynia, COVID-19. * Executive Director Of Marketing History:?/ Para?0/0.?Sexual activity?currently sexually active.?Last Pap Smear:?10/27/2020 NIL.?Mammogram:?not due per age.?LMP and menses?11/16/2022, 04/27/2022, 03/27/2022, 10/25/2021, 06/20/22, 05/2021, 03/15/2021, 11/10/20, regular.?History of STD's:?Gonorrhea Treated 07/16/20.? Control:?Nuva Ring.?Gardasil:?series completed.? * OB History:?Total pregnancies?.? Objective: * Vitals:? * Examination: ???General Examination: ?GENERAL APPEARANCE:?in no acute distress,well developed, well nourished,bulldozer mechanic present in room.?HEAD:?normocephalic, atraumatic.?NECK/THYROID:?neck supple, full range [...] * Follow Up:?1 Year (Reason: Y early Executive Director Of Marketing Exam) * Images: Billing Information: * Visit Code:? 28957 Preventive Care Est Pt. Age 18-39. * Procedure Codes:? 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 She has been in state [...] ac sera distress, well developed, well nourished, bulldozer mechanic present in room HEAD: normocephalic, atrau [...]
== END 2024-12-10 09:01 | disposition home or self-care (01) ==
LOC: HO.HGS 08:40
PROVIDERS: PCP Internal Medicine; Visit Provider Surgery
DX: R22.2 Localized swelling, mass and lump, trunk (principal)
CPT/HCPCS: 99203

== ENCOUNTER → 2024-12-10 08:39 | Outpatient (BNVA) | payer OTHER, SELFPAY | PROVIDERS: PCP Internal Medicine; Visit Provider Surgery | DX: R22.2 Localized swelling, mass and lump, trunk (principal) | CPT/HCPCS: 99202 ==

== ENCOUNTER 2025-02-10 16:33 | Outpatient (REF) | payer OTHER, SELFPAY ==
--- OUTSIDE RECORDS SUMMARY | 2024-02-15 11:00 | XMS_ITS ---
Author Organization [facility] Address [address] [place] [address] Care Team Providers Care Commissary Production Supervisor Name Role Phone CONG RAPP Unavailable [phone] REASON FOR VISIT Annual WAGE ANALYST Physical Medications Medication SIG (Take, Route, Frequency, [...] Unknown Encounters Encounter Location Date Provider Diagnosis [address] [address] 02/15/2024 CONG RAPP Encounter for gynecological examination [...] Follow Up: 1 Year, Reason: Y early Parts Counter Specialist Exam Provider Name:CONG Vicente, 04/17/2025 03:00:00 PM, [address], [address], [place], [address], Progress Notes * CATHERINE DELEONDOB:11/2000 (24 yo F)Acc No.[id number]:02/15/2024 PROGRESS NOTES Patient: Alice LEON CATHERINE RODRIGUEZ Provider: Roopa RAPP MD :2000 A ge:23 Y S ex:Female Date:02/15/2024 Address:[address] [place], [place] [phone] Subjective: * Chief Complaints: * 1 . Annual WAGE ANALYST Physical. 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 S he has been in [...] days/week by walking/hiking. * ROS: A nnual Parts Counter Specialist Exam ROS: Bowel habit changes d enies. [...] uterine and vaginal bleeding, Mastodynia, COVID-19. * Parts Counter Specialist History: G ravida/ Para 0 /0. S [...] i n no acute distress,well developed, well nourished,color making supervisor present in room. HEAD: n ormocephalic, atraumatic. [...] * Follow Up: 1 Year (Reason: Yearly Parts Counter Specialist Exam) * Images: Billing Information: * Visit Code: 75006 Preventive Care Est Pt. Age 18-39. * Procedure Codes: * Electronic signature of CONG RAPP MD on 02/10/2025 at 04:50 PM EDT Sign off status: Pending * Provider: Roopa RAPP MD Date: 02/15/2024 Generated for Kaylan coampo/Violetta/Kevinsmitting on: 02/10/2025 04:50 PM EDT History and Physical Notes * HPI (History of Present Illness) Category Sub-Category Detail Notes Category Not es Constitutional Catherine is a 23yo G0 with LMP who presents for her yearly diamond powder mixer annual exam. She has been in state [...] General Examination GENERAL APPEARANCE: in no ac [place] distress, well developed, well nourished, color making supervisor present in room HEAD: normocephalic, atrau matic [...]
--- NOTE | ~2025-02-10 | CT_ITS ---
CLINICAL HISTORY: R22.2 - Localized swelling, mass and lump, trunk --- Additional Notes or Special Instructions: Question of abdominal wall mass on the left upper quadrant CT abdomen and pelvis without contrast Comparison: None provided Findings: Lung bases are clear. No acute bony abnormalities. Hepatomegaly with fatty infiltration of the liver. No significant focal abnormality in liver or spleen. Pancreas and adrenal glands unremarkable. Gallbladder is within normal limits. Punctate nonobstructing right renal stone. No other significant renal abnormality. No ureteral stones or hydronephrosis. Distal ureters were not imaged. Abdominal aorta is normal in caliber. Appendix is normal. Pelvis was not imaged. Impression: No acute process This document has been electronically signed by: Robert Castellon MD on 02/11/2025 21:27:29
== END 2025-02-10 16:34 | disposition home or self-care (01) ==
LOC: HO.CT 16:33
PROVIDERS: PCP Internal Medicine; Visit Provider Surgery
DX: R22.2 Localized swelling, mass and lump, trunk (principal)
CPT/HCPCS: 74150

== ENCOUNTER → 2025-02-10 16:35 | Outpatient (BNV) | payer OTHER, SELFPAY | PROVIDERS: PCP Internal Medicine; Visit Provider Radiology Diagnostic Radiology | DX: R22.2 Localized swelling, mass and lump, trunk (principal) | CPT/HCPCS: 74150 ==

== ENCOUNTER 2025-03-24 14:54 | Outpatient (AMB) | payer OTHER, SELFPAY ==
--- OUTSIDE RECORDS SUMMARY | 2024-02-15 11:00 | XMS_ITS ---
Author Organization [facility] Address [address] [place] [address] Care Team Providers Care Lifter/Driver Name Role Phone CONG RAPP Unavailable [phone] REASON FOR VISIT Annual COAL CONVEYOR OPERATOR Physical Medications Medication SIG (Take, Route, Frequency, [...] Unknown Encounters Encounter Location Date Provider Diagnosis [address] [address] 02/15/2024 CONG RAPP Encounter for gynecological examination [...] Follow Up: 1 Year, Reason: Y early Military Technology Manager Exam Provider Name:CONG Vicente, 04/17/2025 03:00:00 PM, [address], [address], [place], [address], Progress Notes * CATHERINE DELEONDOB:11/2000 (24 yo F)Acc No.[id number]:02/15/2024 PROGRESS NOTES Patient: Alice LEON CATHERINE RODRIGUEZ Provider: Roopa RAPP MD :2000 A ge:23 Y S ex:Female Date:02/15/2024 Address:[address] [place], [place] [phone] Subjective: * Chief Complaints: * 1 . Annual COAL CONVEYOR OPERATOR Physical. 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 S he has been in [...] days/week by walking/hiking. * ROS: A nnual Military Technology Manager Exam ROS: Bowel habit changes d enies. [...] uterine and vaginal bleeding, Mastodynia, COVID-19. * Military Technology Manager History: G ravida/ Para 0 /0. S [...] i n no acute distress,well developed, well nourished,guitar repairer present in room. HEAD: n ormocephalic, atraumatic. [...] * Follow Up: 1 Year (Reason: Yearly Military Technology Manager Exam) * Images: Billing Information: * Visit Code: 32498 Preventive Care Est Pt. Age 18-39. 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 She has been in state [...] ac sera distress, well developed, well nourished, guitar repairer present in room HEAD: normocephalic, atrau matic [...]
--- OUTSIDE RECORDS SUMMARY | 2024-03-04 11:10 | XMS_ITS ---
Author Organization [employer] 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 Annual ART CONSERVATOR Physical. 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 S he has been in [...] days/week by walking/hiking. * ROS: A nnual Overhead Garage Door Hanger Exam ROS: Bowel habit changes d enies. [...] uterine and vaginal bleeding, Mastodynia, COVID-19. * Overhead Garage Door Hanger History: G ravida/ Para 0 /0. S [...] i n no acute distress,well developed, well nourished,court manager present in room. HEAD: n ormocephalic, atraumatic. [...] * Follow Up: 1 Year (Reason: Yearly Overhead Garage Door Hanger Exam) * Images: Billing Information: * Visit Code: 16621 Preventive Care Est Pt. Age 18-39. * Procedure Codes: * Electronic signature of CONG RAPP MD on 03/24/2025 at 03:49 PM EDT Sign off status: Pending * Provider: Roopa RAPP MD Date: 03/04/2024 Generated for Horacei terrence/Violetta/eTransmitting on: 03/24/2025 03:49 PM EDT History and Physical Notes * HPI (History of Present Illness) Category Sub-Category Detail Notes Category Not es Constitutional Catherine is a 23yo G0 with LMP who presents for her yearly research psychologist annual exam. She has been in state [...] ac sera distress, well developed, well nourished, court manager present in room HEAD: normocephalic, atrau matic [...]
--- NOTE | 2025-03-24 14:56 | A.OFFVIS_ITS ---
Vital Signs 03/24/25 14:59 Height 5 ft 7 in Weight 203 lb BMI 31.8 BP 124/73 Blood Pressure Location Rt brachial Position Sitting Pulse 73 Intake Visit Reasons: s/p ct scan 02-10 Intake Note: Patient here to discuss abdomen CT scan, 02-10-2025. Patient c/o: reports no changes. Agricultural Engineering Technician Required: No Agricultural Engineering Technician Services: Agricultural Engineering Technician Offered & Declined Accompanied by: Spouse Allergies No Known Allergies Allergy (Verified 03/24/25 15:00) Medication List - Last Reconciled 03/24/25 by Mynor Ribera MD No Known Home Meds HPI HPI s/p ct scan 02-10: Details: I had seen her last Nov, 2024 because of her concerns about a ?mass? on the left upper quadrant area near the ribcage. I had sent her for a CAT scan as I could not feel any obvious mass. She denies any new findings. She describes some tenderness on the ribcage. [facility] Medical History Mass of anterior abdominal wall Depression with anxiety Surgical History No pertinent past surgical history Family History Mother Substance use disorder Mental health disorder Depression with anxiety Sister Substance use disorder Mental health disorder Depression with anxiety Maternal Grandmother Mental health disorder Depression with anxiety Essential hypertension Hypercholesterolemia CAD (coronary artery disease) Alzheimer's disease Maternal Aunt Mental health disorder Depression with anxiety Social History Housing: Apartment Patient Tobacco Use Status: Never used Tobacco e-Cigarette/Vaping Use: Former Use Substance Use Type: Marijuana service: No Current occupational status: employed Cognitive needs: No Hearing needs: No Vision needs: Yes Review of Systems Const Denies chills and Denies fever(s) Card Denies chest pain, Denies dyspnea and Denies dyspnea on exertion Resp Denies cough, Denies dyspnea and Denies dyspnea on exertion GI Denies hematochezia and Denies change in bowel habits Denies hematuria Musc Denies back pain and Denies limited range of motion Neuro Denies focal weakness and Denies convulsions Psych Denies depression and Denies mood swings Physical Exam Vital Signs: Last Vital Signs Pulse 73 03/24/25 14:59 BP 124/73 03/24/25 14:59 BMI result Body Mass Index 31.8 Const General: comfortable and no acute distress Resp Effort & Inspection: normal respiratory effort Cardio Rate: regular rate GI Other: Palpable masses on the left upper quadrant, some tenderness in the ribcage on the lower most ribs Palpation (GI): Soft to palpation, not firm, nontender and no guarding Assessment & Plan Assessment & Plan (1) Mass of anterior abdominal wall: Code(s): R22.2 - Localized swelling, mass and lump, trunk Category: Medical Plan: I have reviewed her CAT scan and this has not show any abdominal mass. Furthermore, repeat exam today does not suggest any mass although there may be some remnants of the ribcage in the area. I assured her about the above findings . I did tell her that if she notices any obvious mass or changes, she is welcome to come back to the office to be re- evaluated She is comfortable with the plan. Coding Level of Care Code Est Pt Level 2 (67039) Diagnoses Mass of anterior abdominal wall R22.2
[2025-03-24 14:59] VITALS: BP 124/73; PULSE 73; BMI 31.8
--- OUTSIDE RECORDS SUMMARY | 2025-03-24 15:49 | XMS_ITS | Patient Health Record ---
Author Organization [facility] Address [address] [place] [address] Care Team Providers Care Burrer Operator Name Role Phone CONG RAPP Unavailable [phone] Allergies No Known Allergies Results Component Value Reference Range Notes Test, Urine Reviewed date:04/15/2024 02:32:09 PM Interpretation: Performing Lab: Notes/Report: Test, Urine NEG Urinalysis Reviewed date:04/15/2024 02:32:03 PM Interpretation: Performing Lab: Notes/Report: NITRITE NEG PH 6.0 PROTEIN TR S.G 1.015 WBC TR GLUCOSE NEG KETONES NEG UROBILINOGEN NEG BILIRUBIN TR BLOOD NEG Urine Culture, [id number] Reviewed date:04/18/2024 09:42:37 AM Interpretation: Performing Lab:Bc Patel, Yenny Maisha [address], [address], [place], Phone - [phone], [facility] Notes/Report: Clinical Information:SRC: URINE Clinical Information:SRC: URINE Urine Culture, Routine Final report Result 1 Mixed urogenital chaya 10,000-25,000 colony forming units per mL No Urine Received TNP Test not performed. Brody top urine tube is for urine culture and is not suitable for urinalysis. TEST: [id number] Urinalysis, Complete [id number] IGP, CtNg, Cultur e Under 30 Reviewed date:04/21/2024 11:18:49 AM Interpretation: Performing Lab:Bc Patel [address], [address], [place], Phone - [phone], [facility] Notes/Report: Clinical Information:Cervical, LMP: 03/11/24 [id number] LMP / Prev Treat...[id number] Dates / Results....10/27/20 NIL No. of containers..01 ThinPrep Vial DIAGNOSIS: NEGATIVE FOR IN TRAEPITHELIAL LESION OR MALIGNANCY. Specimen adequacy: Satisfact ory for evaluation. No endocervical component is identified. Clinician provided ICD10: Z01.419 Z72.51 Performed by: Cherri barker, Bottle Line Worker ([facility]) . . Note: The Pap smear [...] 01:13:47 PM Interpretation: Performing Lab:Bc Patel, Yenny [employer], [address], [place], Phone - [phone], Director - [facility] Notes/Report: Clinical Information:SRC: URINE PDF Report Reviewed date:04/18/2024 01:17:09 PM Interpretation: Performing Lab:Bc Patel, Yenny [employer], [address], [employer], Phone - [phone], Director - [facility] Notes/Report: Clinical Information:Cervical, LMP: 03/11/24 [id number] LMP / Prev Treat...[id number] Dates / Results....10/27/20 NIL No. of containers..01 ThinPrep Vial Reason For Referral No Information Medications Medication SIG (Take, Route, Frequency, Duration) Notes Start Date End Date Status Etonogestrel-Ethinyl Estradiol 0.12-0.015 MG/24HR [address] for 3 weeks, remove, and replace with a new ring after 7 day break Vaginal; Duration: 84 days Active Social History Tobacco Use: [...] Risk Notes Problem Intermenstrual bleeding - irregular (52079186) Excessive and frequent menstruation with irregular cycle (N92.1) Active confirmed Problem Other specified abnormal uterine and vaginal bleeding (N93.8) Active confirmed Problem Pain in female genitalia on intercourse (00802496) Superficial (introital) dyspareunia (N94.11) Active confirmed Problem COVID-19 (217897700) COVID-19 (U07.1) Active confirmed Vital Signs Temperature 97.7 degrees Fahrenheit 04/15/2024 Blood pressure diastolic 78 mm Hg 04/15/2024 Height 64 in 04/15/2024 Blood pressure systolic 120 mm Hg 04/15/2024 Weight 191 lbs 04/15/2024 BMI 32.78 kg/m2 04/15/2024 Encounters Encounter Location Date Provider Diagnosis [address] [place] [address] 04/15/2024 CONG RAPP Encounter for gynecological examination [...] Provider Name:CONG Vicente, 04/17/2025 03:00:00 PM, [address] [facility], [address], [place], [address], Insurance Providers Payer Name Payer Address Payer Phone Subscriber Number Group Number Insured Name Patient Relationship to Insured Coverage Start Date Coverage End Date [facility] [address] [address] [place] [address] [id number] CATHERINE DELEON Self - patient is the [...]
== END 2025-03-24 15:04 | disposition home or self-care (01) ==
LOC: HO.HGS 14:54
PROVIDERS: PCP Internal Medicine; Visit Provider Surgery
DX: R22.2 Localized swelling, mass and lump, trunk (principal)
CPT/HCPCS: 99212

== ENCOUNTER → 2025-03-24 14:54 | Outpatient (BNVA) | payer OTHER, SELFPAY | PROVIDERS: PCP Internal Medicine; Visit Provider Surgery | DX: R22.2 Localized swelling, mass and lump, trunk (principal) | CPT/HCPCS: 99212 ==

== ENCOUNTER 2025-03-26 13:59 | Outpatient (AMB) | payer OTHER, SELFPAY ==
--- OUTSIDE RECORDS SUMMARY | 2024-02-15 11:00 | XMS_ITS ---
Author Organization [facility] Address [address] [place] [address] Care Team Providers Care Bench Worker Apprentice Name Role Phone CONG RAPP Unavailable [phone] REASON FOR VISIT Annual DESIGNATED BROKER Physical Medications Medication SIG (Take, Route, Frequency, [...] Unknown Encounters Encounter Location Date Provider Diagnosis [address] [address] 02/15/2024 CONG RAPP Encounter for gynecological examination [...] Follow Up: 1 Year, Reason: Y early Harbor Master Exam Provider Name:CONG Vicente, 04/17/2025 03:00:00 PM, [address], [address], [place], [address], Progress Notes * CATHERINE DELEONDOB:11/2000 (24 yo F)Acc No.[id number]:02/15/2024 PROGRESS NOTES Patient: Alice LEON CATHERINE RODRIGUEZ Provider: Roopa RAPP MD :2000 A ge:23 Y S ex:Female Date:02/15/2024 Address:[address] [place], [place] [phone] Subjective: * Chief Complaints: * 1 . Annual DESIGNATED BROKER Physical. * HPI: C onstitutional: Justin zambrano is a 23yo G0 with LMP who presents for her yearly gynecological assistant annual exam. S he has been in [...] days/week by walking/hiking. * ROS: A nnual Harbor Master Exam ROS: Bowel habit changes d enies. [...] uterine and vaginal bleeding, Mastodynia, COVID-19. * Harbor Master History: G ravida/ Para 0 /0. S [...] i n no acute distress,well developed, well nourished,managed care coordinator present in room. HEAD: n ormocephalic, atraumatic. [...] * Follow Up: 1 Year (Reason: Yearly Harbor Master Exam) * Images: Billing Information: * Visit Code: 14846 Preventive Care Est Pt. Age 18-39. * Procedure Codes: * Electronic signature of CONG RAPP MD on 03/26/2025 at 02:48 PM EDT Sign off status: Pending * Provider: Roopa RAPP MD Date: 02/15/2024 Generated for Kaylan ocampo/Violetta/Kevinsmitting on: 03/26/2025 02:48 PM EDT History and Physical Notes * HPI (History of Present Illness) Category Sub-Category Detail Notes Category Not es Constitutional Catherine is a 23yo G0 with LMP who presents for her yearly gynecological assistant annual exam. She has been in state [...] ac sera distress, well developed, well nourished, managed care coordinator present in room HEAD: normocephalic, atrau matic [...]
--- OUTSIDE RECORDS SUMMARY | 2024-03-04 11:10 | XMS_ITS ---
Author Organization [facility] [employer] [facility] Address [address] [place] [address] Care Team Providers Care School Lunch Monitor Name Role Phone RAPP, CONG Unavailable [phone] REASON FOR VISIT Annual HIDE BUYER Physical Encounters Encounter Location Date Provider Diagnosis [facility] [facility] [address] [place] [address] 03/04/2024 CONG RAPP Encounter for gynecological examination [...] Follow Up: 1 Year, Reason: Y early Insurance Agency Sales Manager Exam Provider Name:CONG Vicente, 04/17/2025 03:00:00 PM, [address], [address], [place], [address], Progress Notes * CATHERINE DELEONDOB:11/2000 (24 yo F)Acc No.[id number]:03/04/2024 PROGRESS NOTES Patient: CATHERINE HERNANDEZ Provider: Roopa RAPP MD :2000 A ge:23 Y S ex:Female Date:03/04/2024 Address:[address] [place] [address] Subjective: * Chief Complaints: * 1 . Annual HIDE BUYER Physical. 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 S he has been in [...] days/week by walking/hiking. * ROS: A nnual Insurance Agency Sales Manager Exam ROS: Bowel habit changes d [...] uterine and vaginal bleeding, Mastodynia, COVID-19. * Insurance Agency Sales Manager History: G ravida/ Para 0 /0. 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 HEAD: n ormocephalic, atraumatic. [...] * Follow Up: 1 Year (Reason: Yearly Insurance Agency Sales Manager Exam) * Images: Billing Information: * Visit Code: 96058 Preventive Care Est Pt. Age 18-39. 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 She has been in state [...] ac sera distress, well developed, well nourished, drywall mechanic present in room HEAD: normocephalic, atrau matic [...]
--- NOTE | 2025-03-26 14:08 | MHC.PC.OV ---
Vital Signs 03/26/25 14:17 Height 5 ft 7 in Weight 204 lb BMI 31.9 BP 114/66 Blood Pressure Location Lt brachial Position Sitting Respiration 15 Pulse 88 Pulse Source Pulse Oximeter Temp 98.8 F Temp Source Oral Pulse Oximetry (%) 99 Oxygen Delivery Method Room Air Intake Visit Reasons: PE Intake Note: Pt is here today for her PE: Last mammogram 04/18/24 Is last menstrual period known: Yes Last menstrual period: 03/12/25 Allergies No Known Allergies Allergy (Verified 03/26/25 14:30) Medication List - Last Reconciled 03/26/25 by Nellie Mckeon MD etonogestrel-ethinyl estradiol 0.12-0.015 mg/24 hr vag rings vaginal Tobacco use date assessed: 03/26/25 Dental Screening Dental Screen Date: 03/26/25 Did you have a dental visit in the last 12 months?: Yes Did you have a dental problem in the last 6 months where you did not have access to dental care?: No Was dental information given to patient?: Patient has dentist HPI PE HPI Details - The patient is a 24-year-old female presenting for physical exam.. - Heart palpitations: The patient reports frequent palpitations, often linked to anxiety, occurring during rest or sleep, and more persistent during physical activity. Episodes are brief, lasting about 2-3 seconds, and resolved spontaneously. - Anxiety: The patient identifies anxiety as a factor in her palpitations, experiencing it frequently. - Seborrheic dermatitis: The patient has severe dandruff managed with ketoconazole shampoo, causing dryness and hair loss. She experiences scalp itchiness and flakiness, worsening when hair dries. - Heartburn: The patient experiences nightly heartburn, sometimes severe, and has been advised to start famotidine. Spicy foods exacerbate the condition. -goes to [facility] for her routine Pap and pelvic exam, with last Pap smear done in 2023 per patient with negative findings. [facility] Medical History (Updated 03/26/25 @ 14:51 by Nellie Mckeon MD) Chronic heartburn Intermittent palpitations Mass of anterior abdominal wall Depression with anxiety Surgical History No pertinent past surgical history Family History Mother Substance use disorder Mental health disorder Depression with anxiety Sister Substance use disorder Mental health disorder Depression with anxiety Maternal Grandmother Mental health disorder Depression with anxiety Essential hypertension Hypercholesterolemia CAD (coronary artery disease) Alzheimer's disease Maternal Aunt Mental health disorder Depression with anxiety Social History Housing: Apartment Patient Tobacco Use Status: Never used Tobacco e-Cigarette/Vaping Use: Former Use Substance Use Type: Marijuana service: No Current occupational status: employed Cognitive needs: No Hearing needs: No Vision needs: Yes Female Reproductive History Menstrual Date of last menstrual period: 03/12/25 control method: vaginal ring Other: sees CONG RAPP for her Rx control Questionnaire Thrive Questionnaire Date Thrive assessed: 09/25/24 I am a: Patient What is your living situation today?: I have a steady place to live Within the past 12 months, did the food you bought not last and you didn't have the money to get more?: Sometimes True Within the past 12 months, did you worry whether your food would run out before you got money to buy more?: Sometimes True Do you have trouble paying for medicines?: No Do you have trouble getting transportation to medical appointments?: No Do you have trouble paying your heating and electricity bill?: No Do you have trouble taking care of your child, family member or friend?: No Do you have trouble with day-to-day activities such as bathing, preparing meals, shopping, managing finances, etc.?: No Are you currently unemployed and looking for a job?: No Are you interested in more education?: Yes Please select the resources that you would like help with: None Currently or been in a relationship where the following occur: I choose not to answer THRIVE Score: 2 AUDIT C Alcohol Use Questionnaire (AUDIT-C) 2. How many drinks containing alcohol do you have on a typical day when you are drinking?: 1 or 2 3. How often do you have six or more drinks on one occasion?: Never Total Score: 0 Score Reviewed/Action Taken: Yes WENDY-7 AMB Questionnaire WENDY-7 Date WENDY - 7 assessed: 09/25/24 Source: Developed by Drs. Joey Ghotra, Madelyn Plummer, Petros Peck and colleagues, with an educational lise from [employer]. Review of Systems Const Reports no additional complaints Eyes Details: [facility] ENT Details: Dental prophylaxis every 6 months Card Denies chest pain, Denies dyspnea and Denies dyspnea on exertion Resp Denies cough, Denies dyspnea and Denies dyspnea on exertion GI Denies hematochezia and Denies change in bowel habits Denies hematuria Musc Denies back pain and Denies limited range of motion Skin/Breast Denies breast pain, Denies breast mass and Denies rash Neuro Denies focal weakness and Denies convulsions Psych Denies depression and Denies mood swings Endo Reports no additional complaints Arnel/Lymph Reports no additional complaints Aller/Immun Reports no additional complaints Physical exam (Primary Care) Vital Signs: Last Vital Signs Temp 98.8 F 03/26/25 14:17 Pulse 88 03/26/25 14:17 Resp 15 03/26/25 14:17 BP 114/66 03/26/25 14:17 Pulse Ox 99 03/26/25 14:17 Oxygen Delivery Method Room Air 03/26/25 14:17 BMI result Body Mass Index 31.9 Tobacco/Smoking Status: Tobacco use Status Tobacco use date assessed 03/26/25 03/26/25 14:16 Patient Tobacco Use Status Never used Tobacco 03/26/25 14:10 e-Cigarette/Vaping Use Former Use 03/26/25 14:10 Thrive Assessment: Date of Thrive Assessment Date Thrive assessed 09/25/24 03/26/25 14:10 Currently or been in a relationship where the following occur: I choose not to answer Const General: no acute distress and alert Orientation/consciousness: patient oriented x3 HENMT Ears: external ears normal General nose exam: Normal external nose present Mouth: Normal oral and palatal mucosa present, oropharynx normal and moist mucous membranes Eyes General: appearance normal, both eyes and all related structures Neck Neck: Yes full ROM, Yes no lymphadenopathy and Yes supple Chest Breast/axilla inspection: normal inspection of the breasts Breast/axilla palpation: normal palpation of the breasts Resp Effort & Inspection: normal respiratory effort and able to speak in complete sentences Auscultation: clear to auscultation bilaterally Cardio Rate: regular rate Rhythm: regular rhythm Heart sounds: S1 normal heart sound present and S2 normal heart sound present GI Palpation (GI): Soft to palpation and nontender Auscultation: normal bowel sounds General: Yes no CVA tenderness Back/Spine/Pelvis Back: no CVA tenderness Skin General skin exam: no rashes or lesions noted Lesions: lesion noted (Skin tags on neck and chest) Neuro General: patient oriented x3, gait normal, tone normal, moves all extremities, Normal light touch and pain sensation and no focal motor deficits Cranial nerves: Yes CN's II-XII intact bilaterally Cognition (Neuro): normal cognition Extrem General: Yes full ROM, Yes no joint enlargement, Yes no clubbing, cyanosis or edema and Yes no calf tenderness Psych Appearance: grossly normal and well kempt Mental Status: mental status grossly normal Speech and movement: Normal speech and movement present Affect: normal affect Coding Level of Care Code Est Pt Prev Care 18-39y(80687) Diagnoses Depression with anxiety F41.8 Pruritic dermatosis of scalp L29.89 Encounter for hepatitis C screening test for low risk patient Z11.59 Assessment & Plan Assessment & Plan (1) Depression with anxiety: Comment: Uses marijuana which helps control her anxiety and depression Code(s): F41.8 - Other specified anxiety disorders Category: Medical (2) Pruritic dermatosis of scalp: Code(s): L29.89 - Other pruritus (3) Encounter for hepatitis C screening test for low risk patient: Code(s): Z11.59 - Encounter for screening for other viral diseases Plan Patient was informed and verbally consented to the use of an ambient scribe for clinic note documentation during this visi 1. Heart Palpitations The patient reports frequent heart palpitations, often associated with anxiety. A thyroid function test and anemia screening ordered to rule out underlying causes. The patient is advised to avoid caffeine and stimulants, and if symptoms persist, a Holter monitor may be considered. 2. Anxiety Anxiety is identified as a contributing factor to the patient's heart palpitations. The patient is advised to manage anxiety through lifestyle modifications and to monitor symptoms. 3. Seborrheic Dermatitis The patient has been managing seborrheic dermatitis with ketoconazole shampoo, which causes dryness and hair loss. A referral to dermatology is made for further evaluation and management options. 4. Heartburn The patient experiences chronic heartburn, exacerbated by spicy foods. Famotidine is prescribed, with instructions to take it at night. If symptoms persist after two months, an upper endoscopy may be considered. 5. Skin Tags The patient has noticed an increase in skin tags. A dermatology referral is made for evaluation, though they are not currently concerning unless they change color or get snagged. Fasting labs done to check CBC, fasting glucose, lipid, liver enzymes, TSH with reflex free T4 and hepatitis-B and C profile due to history of having tattoos in the past not done hygienically Orders: Orders Complete Blood Count Auto Diff 03/26/25 F41.8 - Other specified anxiety disorders, R53.83 - Other fatigue, Z13.1 - Encounter for screening for diabetes mellitus, Z13.220 - Encounter for screening for lipoid disorders Glucose Fasting 03/26/25 F41.8 - Other specified anxiety disorders, R53.83 - Other fatigue, Z13.1 - Encounter for screening for diabetes mellitus, Z13.220 - Encounter for screening for lipoid disorders Lipid Panel 03/26/25 F41.8 - Other specified anxiety disorders, R53.83 - Other fatigue, Z13.1 - Encounter for screening for diabetes mellitus, Z13.220 - Encounter for screening for lipoid disorders Alanine Aminotransferase 03/26/25 F41.8 - Other specified anxiety disorders, R53.83 - Other fatigue, Z13.1 - Encounter for screening for diabetes mellitus, Z13.220 - Encounter for screening for lipoid disorders Aspartate Amino Transferase 03/26/25 F41.8 - Other specified anxiety disorders, R53.83 - Other fatigue, Z13.1 - Encounter for screening for diabetes mellitus, Z13.220 - Encounter for screening for lipoid disorders TSH reflex Free T4 03/26/25 R00.2 - Palpitations, R12 - Heartburn Hepatitis B,C Profile 03/26/25 Z11.59 - Encounter for screening for other viral diseases Referrals Dermatology Referral L29.89 - Other pruritus Medications: New famotidine 40 mg PO BEDTIME 30 tabs 3RF
[2025-03-26 14:17] VITALS: BP 114/66; PULSE 88; RESP 15; TEMP 37.1; O2SAT 99; BMI 31.9
--- OUTSIDE RECORDS SUMMARY | 2025-03-26 14:49 | XMS_ITS | Patient Health Record ---
Author Organization [facility] Address [address] [facility] [address] [place] [address] Care Team Providers Care Youth Pastor Name Role Phone CONG RAPP Unavailable [phone] Allergies No Known Allergies Results Component Value Reference Range Notes Test, Urine Reviewed date:04/15/2024 02:32:09 PM Interpretation: Performing Lab: Notes/Report: Test, Urine NEG Urine Culture, Routine-[id number] Reviewed date:04/18/2024 09:42:37 AM Interpretation: Performing Lab:[facility], [address], [address], [place], Phone - [phone], [facility] Notes/Report: Clinical Information:SRC: URINE Clinical Information:SRC: URINE Urine Culture, Routine Final report Result 1 Mixed urogenital chaya 10,000-25,000 colony forming units per mL No Urine Received TNP Test not performed. Brody top urine tube is for urine culture and is not suitable for urinalysis. TEST: [id number] Urinalysis, Complete Urinalysis Reviewed date:04/15/2024 02:32:03 PM Interpretation: Performing Lab: Notes/Report: NITRITE NEG PH 6.0 PROTEIN TR S.G 1.015 WBC TR GLUCOSE NEG KETONES NEG UROBILINOGEN NEG BILIRUBIN TR BLOOD NEG [id number] IGP, CtNg, Cultur e Under 30 Reviewed date:04/21/2024 11:18:49 AM Interpretation: Performing Lab:[facility], [address], [address], [place], Phone - [phone], Director - [facility] Notes/Report: Clinical Information:Cervical, LMP: 03/11/24 [id number] LMP / Prev Treat...[id number]=[id number] Dates / Results....10/27/20 NIL No. of containers..01 ThinPrep Vial DIAGNOSIS: NEGATIVE FOR IN TRAEPITHELIAL LESION OR MALIGNANCY. Specimen adequacy: Satisfact ory for evaluation. No endocervical component is identified. Clinician provided ICD10: Z01.419 Z72.51 Performed by: Cherri barker, High School Assistant Football Coach ([facility]) . . Note: The Pap [...] 01:13:47 PM Interpretation: Performing Lab:[facility], [address], [address], [place], Phone - [phone], Director - [facility] Notes/Report: Clinical Information:SRC: URINE PDF Report Reviewed date:04/18/2024 01:17:09 PM Interpretation: Performing Lab:[facility], [address], [address], [place], Phone - [phone], Director - [facility] Notes/Report: Clinical Information:Cervical, LMP: 03/11/24 [id number] LMP / Prev Treat...[id number]=[id number] Dates / Results....10/27/20 NIL No. of containers..01 [...] Risk Notes Problem Intermenstrual bleeding - irregular (48685176) Excessive and frequent menstruation with irregular cycle (N92.1) Active confirmed Problem Abnormal vaginal bleeding (658714261) Other specified abnormal uterine and vaginal bleeding (N93.8) Active confirmed Problem Pain in female genitalia on intercourse (30559883) Superficial (introital) dyspareunia (N94.11) Active confirmed Problem COVID-19 (573654338) COVID-19 (U07.1) Active confirmed Vital Signs Temperature 97.7 degrees Fahrenheit 04/15/2024 Blood pressure diastolic 78 mm Hg 04/15/2024 Height 64 in 04/15/2024 Blood pressure systolic 120 mm Hg 04/15/2024 Weight 191 lbs 04/15/2024 BMI 32.78 kg/m2 04/15/2024 Encounters Encounter Location Date Provider Diagnosis [address] [place] [address] 04/15/2024 CONG RAPP Encounter for gynecological examination [...] GENERATION 04/13/2022 Next Appt Details Provider Name:CONG Vicenet, 04/17/2025 03:00:00 PM, [address], [address], [place], [address], Insurance Providers Payer Name Payer Address Payer Phone Subscriber Number Group Number Insured Name Patient Relationship to Insured Coverage Start Date Coverage End Date [facility] [address] [address] [place] [address] [id number] CATHERINE DELEON Self - patient is the [...]
== END 2025-03-26 16:10 | disposition home or self-care (01) ==
LOC: HO.HMCC 14:00
PROVIDERS: Visit Provider Internal Medicine
DX: Z00.00 Encounter for general adult medical examination without abnormal findings (principal); F41.8 Other specified anxiety disorders; L29.89 Other pruritus; Z11.59 Encounter for screening for other viral diseases

== ENCOUNTER → 2025-03-26 13:59 | Outpatient (BNVA) | payer OTHER, SELFPAY | PROVIDERS: Visit Provider Internal Medicine | DX: Z00.00 Encounter for general adult medical examination without abnormal findings (principal); R00.2 Palpitations; L21.9 Seborrheic dermatitis, unspecified; R51.9 Headache, unspecified; L91.8 Other hypertrophic disorders of the skin; F41.8 Other specified anxiety disorders; R53.83 Other fatigue | CPT/HCPCS: 99395 ==

== ENCOUNTER 2025-05-11 14:52 | Outpatient (AMB) | payer OTHER, SELFPAY ==
--- OUTSIDE RECORDS SUMMARY | 2023-12-13 11:00 | XMS_ITS ---
Author Organization [employer] [facility] Address [address] [place] [address] Care Team Providers Care Pipe Threader Name Role Phone RAPP, CONG Unavailable [phone] REASON FOR VISIT Annual LEGAL CLERK Physical Encounters Encounter Location Date Provider Diagnosis [facility] [employer] [facility] [address] [place] [address] 12/13/2023 CONG RAPP Encounter for gynecological examination (general) (routine) without abnormal findings Z01.419 and Encounter for screening for infections with a predominantly sexual mode of transmission Z11.3 Assessments Encounter Date Diagnosis (ICD Code) Assessment Notes Treatment Notes Treatment Clinical Notes Section Notes 12/13/2023 Encounter for gynecological examination (general) (routine) without abnormal findings (ICD-10 - Z01.419) Discussed cervical cancer screening with cytology every 3 years as per ASCCP guidelines. Advised continued annual pelvic exams. Patient encouraged to increase her level of exercise. SBE technique encouraged/tau ght. Safe sexual practices and STI prevention discussed. 12/13/2023 Encounter for screening for infections with a predominantly sexual mode of transmission (ICD-10 - Z11.3) Plan Of Treatment Treatment Notes Assessment Notes Encounter for gynecological examination (general) (routine) without abnormal findings Discussed cervical cancer screening with cytology every 3 years as per ASCCP guidelines. Advised continued annual pelvic exams. Patient encouraged to increase her level of exercise. SBE technique encouraged/taught. Safe sexual practices and STI prevention discussed. 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 Annual LEGAL CLERK Physical. * HPI: C onstitutional: Justin zambrano is a 23yo G0 with LMP who presents for her yearly car cooper annual exam. S he has been in state of good health since her last exam. She has the following concerns: S he has received just one dose of the Moderna Covid-19 vaccine. R elationship status: *partnered for nearly 2 years. She is sexually active. Sexual partner(s): male. She does *not wish to have STI testing. She accepts CDC- recommended GC/CT screening. M enses: *monthly, lasting 4-7 days, moderate to light flow. No intermenstrual bleeding. C ontraception: *Nuvaring - happy and consistent. Would like refills. T he patient has never had an abnormal pap smear. Her most recent pap smear was 10/27/20 - NIL . Next due for pap in 2023. T he patient does* exercise. She exercises x 1 days/week by walking/hiking. * ROS: A nnual Chlorine Plant Operator Exam ROS: Bowel habit changes d enies. B ladder symptoms d enies. V aginal discharge, unusual d enies. V aginal itch or odor d enies. w eight or appetite changes d enies. C hest pains, SOB d enies. d epression d enies.? B reast: Denies B reast lump. D enies N ipple discharge.? H ematology: Denies S wollen glands. S kin: Patient denies c hanging moles. P sychiatric: Denies A nxiety. * Medical History: Objective: * Vitals: * Examination: G eneral Examination: GENERAL APPEARANCE: i n no acute distress,well developed, well nourished,account information clerk present in room. HEAD: n ormocephalic, atraumatic. NECK/THYROID: n lali supple, full range of motion,thyroid normal. LYMPH NODES: n o axillary or supraclavicular adenopathy.? SKIN: n ormal,good turgor,no rashes,no suspicious lesions.? BREASTS: n ormal,no dimpling,no discharge,no drainage,no masses palpable bilaterally,nontender. ABDOMEN: s oft, non-tender, non distended without masses or hepatosplenomegay. BACK: n o costovertebral angle tenderness. FEMALE GENITOURINARY: V ulva without lesions or masses, vagina pink without abnormal discharge, lesions or masses, cervix appears normal and is not tender to palpation, uterus is normal size, mobile, nontender and anteverted, ovaries are not palpable. NEUROLOGIC: a lert and oriented,gait normal. PSYCH: a lert, oriented,cognitive function intact,cooperative with exam,good eye contact,mood/affect full range,speech clear. Assessment: * Assessment: 1. E ncounter for gynecological examination (general) (routine) without abnormal findings - Z01.419 (Primary) 2 . E ncounter for screening for infections with a predominantly sexual mode of transmission - Z11.3 Plan: * Treatment: * Follow Up: 1 Year (Reason: Yearly Chlorine Plant Operator Exam) * Images: Billing Information: * Visit Code: 75735 Preventive Care Est Pt. Age 18-39. * Procedure Codes: * Electronic signature of CONG RAPP MD on 05/11/2025 at 02:55 PM EDT Sign off status: Pending * Provider: Roopa RAPP MD Date: 0 12/13/2023 Generated for Kaylan ocampo/Violetta/Kevinsmitting on: 1 02:55 PM EDT History and Physical Notes * HPI (History of Present Illness) Category Sub-Category Detail Notes Category Not es Constitutional Catherine is a 23yo G0 with LMP who presents for her yearly car cooper annual exam. She has been in state of good health since her last exam. She has the following concerns: She has received just one dose of the Moderna Covid-19 vaccine. Relationship status: *partnered for nearly 2 years. She is sexually active. Sexual partner(s): male. She does *not wish to have STI testing. She accepts CDC-recommended GC/CT screening. Menses: *monthly, lasting 4-7 days, moderate to light flow. No intermenstrual bleeding. Contraception: *Nuvaring - happy and consistent. Would like refills. The patient has never had an abnormal pap smear. Her most recent pap smear was 10/27/20 - NIL . Next due for pap in 2023. The patient does* exercise. She exercises x 1 days/week by walking/hiking. Examination Category Sub-Category Detail Notes Category Not es General Examination GENERAL APPEARANCE: in no ac mechoopda distress, well developed, well nourished, account information clerk present in room HEAD: normocephalic, atrau matic NECK/THYROID: neck supple, full ra nge of motion, thyroid normal ABDOMEN: soft, non-tender, no n distended without masses or hepatosplenomegay NEUROLOGIC: alert and oriented, gait normal SKIN: normal, good turgor, no rashes, no suspicious lesions BACK: no costovertebral an gle tenderness BREASTS: normal, no dimpling, no discharge, no drainage, no masses palpable bilaterally, nontender LYMPH NODES: no axillary or supra clavicular adenopathy PSYCH: alert, oriented, cog nitive function intact, cooperative with exam, good eye contact, mood/affect full range, speech clear FEMALE GENITOURINARY: Vulva without lesi ons or masses, vagina pink without abnormal discharge, lesions or masses, cervix appears normal and is not tender to palpation, uterus is normal size, mobile, nontender and anteverted, ovaries are not palpable
--- OUTSIDE RECORDS SUMMARY | 2024-02-15 11:00 | XMS_ITS ---
Author Organization [facility] Address [address] [place] [address] Care Team Providers Care Medical Insurance Verifier Name Role Phone CONG RAPP Unavailable [phone] REASON FOR VISIT Annual SNOUT PULLER Physical Medications Medication SIG (Take, Route, Frequency, [...] Unknown Encounters Encounter Location Date Provider Diagnosis [address] [address] 02/15/2024 CONG RAPP Encounter for gynecological examination [...] Follow Up: 1 Year, Reason: Y early Cisco Network Architect Exam Provider Name:CONG Vicente, 06/30/2025 03:30:00 PM, [address], [address], [place], [address], Progress Notes * CATHERINE DELEONDOB:11/2000 (24 yo F)Acc No.[id number]:02/15/2024 PROGRESS NOTES Patient: Alice LEON CATHERINE RODRIGUEZ Provider: Roopa RAPP MD :2000 A ge:23 Y S ex:Female Date:02/15/2024 Address:[address] [place], [place] [phone] Subjective: * Chief Complaints: * 1 . Annual SNOUT PULLER Physical. * HPI: C onstitutional: Justin zambrano is a 23yo G0 with LMP who presents for her yearly obstetrics gyn annual exam. S he has been in [...] days/week by walking/hiking. * ROS: A nnual Cisco Network Architect Exam ROS: Bowel habit changes d enies. [...] uterine and vaginal bleeding, Mastodynia, COVID-19. * Cisco Network Architect History: G ravida/ Para 0 /0. S [...] i n no acute distress,well developed, well nourished,machine maintenance servicer present in room. HEAD: n ormocephalic, atraumatic. [...] * Follow Up: 1 Year (Reason: Yearly Cisco Network Architect Exam) * Images: Billing Information: * Visit Code: 30358 Preventive Care Est Pt. Age 18-39. * Procedure Codes: * Electronic signature of CONG RAPP MD on 05/11/2025 at 02:55 PM EDT Sign off status: Pending * Provider: Roopa RAPP MD Date: 0 02/15/2024 Generated for Kaylan ocampo/Violetta/Dararansmitting on: 1 02:55 PM EDT History and Physical Notes * HPI (History of Present Illness) Category Sub-Category Detail Notes Category Not es Constitutional Catherine is a 23yo G0 with LMP who presents for her yearly obstetrics gyn annual exam. She has been in state [...] General Examination GENERAL APPEARANCE: in no ac campo distress, well developed, well nourished, machine maintenance servicer present in room HEAD: normocephalic, atrau matic [...]
--- OUTSIDE RECORDS SUMMARY | 2024-03-04 11:10 | XMS_ITS ---
Author Organization [employer] 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 Encounters Encounter Location Date Provider Diagnosis [facility] [employer] [facility] [address] [place] [address] 03/04/2024 CONG RAPP Encounter for gynecological examination [...] Follow Up: 1 Year, Reason: Y early Marine Electrician Helper Exam Provider Name:CONG Vicente, 06/30/2025 03:30:00 PM, [address], [address], [place], [address], Progress Notes * CATHERINE DELEONDOB:11/2000 (24 yo F)Acc No.[id number]:03/04/2024 PROGRESS NOTES Patient: CATHERINE HERNANDEZ Provider: Roopa RAPP MD :2000 A ge:23 Y S ex:Female Date:03/04/2024 Address:[address] [place] [address] Subjective: * Chief Complaints: * 1 . Annual HOSPITAL CLEANING SPECIALIST Physical. 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 S he has been in [...] days/week by walking/hiking. * ROS: A nnual Marine Electrician Helper Exam ROS: Bowel habit changes d enies. [...] uterine and vaginal bleeding, Mastodynia, COVID-19. * Marine Electrician Helper History: G ravida/ Para 0 /0. S [...] i n no acute distress,well developed, well nourished,metaphysics teacher present in room. HEAD: n ormocephalic, atraumatic. [...] * Follow Up: 1 Year (Reason: Yearly Marine Electrician Helper Exam) * Images: Billing Information: * Visit Code: 67034 Preventive Care Est Pt. Age 18-39. 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 She has been in state [...] ac sera distress, well developed, well nourished, metaphysics teacher present in room HEAD: normocephalic, atrau matic [...]
--- OUTSIDE RECORDS SUMMARY | 2025-04-17 11:00 | XMS_ITS ---
Author Organization [facility] [employer] 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 S he has been in [...] exercises x 5 days/week by walking/hiking at [facility]. * ROS: A nnual Director Of Product Design Exam ROS: Bowel habit changes d enies. [...] i n no acute distress,well developed, well nourished,bell ringer present in room. HEAD: n ormocephalic, atraumatic. [...] * Follow Up: 1 Year (Reason: Yearly Director Of Product Design Exam) * Images: Billing Information: * Visit Code: 54664 Preventive Care Est Pt. Age 18-39. * Procedure Codes: * Electronic signature of CONG RAPP MD on 05/11/2025 at 02:55 PM EDT Sign off status: Pending * Provider: Roopa RAPP MD Date: 0 04/17/2025 Generated for Printi ng/Fadeniag/eTransmitting on: 1 02:55 PM EDT History and Physical Notes * Examination Category Sub-Category Detail Notes Category Not es General Examination GENERAL APPEARANCE: in no ac sera distress, well developed, well nourished, bell ringer present in room HEAD: normocephalic, atrau matic [...]
--- OUTSIDE RECORDS SUMMARY | 2025-05-11 14:56 | XMS_ITS | Patient Health Record ---
Author Organization [facility] Address [address] [facility] [address] [place] [address] Care Team Providers Care Web Manager Name Role Phone CONG RAPP Unavailable [phone] Allergies No Known Allergies Reason For Referral No Information Medications Medication [...] Risk Notes Problem Intermenstrual bleeding - irregular (28812891) Excessive and frequent menstruation with irregular cycle (N92.1) Active confirmed Problem Abnormal vaginal bleeding (697895247) Other specified abnormal uterine and vaginal bleeding (N93.8) Active confirmed Problem Pain in female genitalia on intercourse (89481052) Superficial (introital) dyspareunia (N94.11) Active confirmed Problem COVID-19 (513776603) COVID-19 (U07.1) Active confirmed Plan Of Treatment Pending Test Test Name [...] 04/13/2022 Next Appt Details Provider Name:CONG Vicente, 06/30/2025 03:30:00 PM, [address] [place] [address], [facility] [address], [place], [address], Insurance Providers Payer Name Payer Address Payer Phone Subscriber Number Group Number Insured Name Patient Relationship to Insured Coverage Start Date Coverage End Date [facility] [address] [address] [place] [address] [id number] CATHERINE DELEON Self - patient is the [...]
--- NOTE | 2025-05-11 15:32 | A.OFFPC_ITS ---
Vital Signs 05/11/25 15:41 Height 5 ft 7 in Weight 199 lb BMI 31.2 BP 114/68 Blood Pressure Location Lt brachial Position Sitting Respiration 16 Pulse 87 Pulse Source Pulse Oximeter Temp 98.7 F Temp Source Oral Pulse Oximetry (%) 99 Oxygen Delivery Method Room Air Intake Visit Reasons: panic attacks Intake Note: Pt is here today for her ED f/u on panic attacks: [facility] Broadcast Checker Required: No Allergies No Known Allergies Allergy (Verified 05/11/25 15:55) Medication List - Last Reconciled 05/11/25 by Nellie Mckeon MD etonogestrel-ethinyl estradiol 0.12-0.015 mg/24 hr vag rings vaginal famotidine 40 mg PO BEDTIME lorazepam 0.25 mg PO BID PRN Tobacco use date assessed: 05/11/25 Dental Screening Dental Screen Date: 05/11/25 Did you have a dental visit in the last 12 months?: Yes Did you have a dental problem in the last 6 months where you did not have access to dental care?: No Was dental information given to patient?: Patient has dentist HPI panic attacks HPI Details The patient is a 24-year-old female presenting with severe anxiety and panic attacks. The patient reports a history of panic disorder, which has been present since childhood but became significantly more severe approximately two years ago. She initially sought emergency care due to unfamiliarity with panic attacks, experiencing symptoms such as chest heaviness, dyspnea, dizziness, and hyperventilation, particularly when attempting to sleep. The patient describes her panic attacks as frequent, lasting from one to two weeks, and exacerbated by stress and past trauma. She has attempted various behavioral interventions, including grounding and breathing techniques, without significant relief. Family history reveals that both her grandmother and mother have experienced panic disorder, with her grandmother having been treated with medications such as Valium and clonidine. The patient also reports social anxiety, particularly when speaking in front of groups, leading to symptoms such as tremors, voice shakiness, and crying. She denies any history of heart disease, anemia, thyroid dysfunction, electrolyte imbalances, pulmonary embolism, congestive heart failure, or urinary tract infections. She is not allergic to any medications and has a history of normal Pap smears, with the last one conducted last year. [facility] Medical History Chronic heartburn Intermittent palpitations Mass of anterior abdominal wall Depression with anxiety Surgical History No pertinent past surgical history Family History Mother Substance use disorder Mental health disorder Depression with anxiety Sister Substance use disorder Mental health disorder Depression with anxiety Maternal Grandmother Mental health disorder Depression with anxiety Essential hypertension Hypercholesterolemia CAD (coronary artery disease) Alzheimer's disease Maternal Aunt Mental health disorder Depression with anxiety Social History Housing: Apartment Patient Tobacco Use Status: Never used Tobacco e-Cigarette/Vaping Use: Former Use Substance Use Type: Marijuana service: No Current occupational status: employed Cognitive needs: No Hearing needs: No Vision needs: Yes Female Reproductive History Menstrual Other: Dr Sarah hartmann at [facility] care Questionnaire Thrive Questionnaire Date Thrive assessed: 09/25/24 Currently or been in a relationship where the following occur: I choose not to answer THRIVE Score: 0 WENDY-7 AMB Questionnaire WENDY-7 Date WENDY - 7 assessed: 09/25/24 Source: Developed by Drs. Joey Ghotra, Madelyn Plummer, Petros Peck and colleagues, with an educational lise from [employer]. Review of Systems Const All systems reviewed & are unremarkable except as noted in HPI and below Physical exam (Primary Care) Vital Signs: Last Vital Signs Temp 98.7 F 05/11/25 15:41 Pulse 87 05/11/25 15:41 Resp 16 05/11/25 15:41 BP 114/68 05/11/25 15:41 Pulse Ox 99 05/11/25 15:41 Oxygen Delivery Method Room Air 05/11/25 15:41 BMI result Body Mass Index 31.2 Tobacco/Smoking Status: Tobacco use Status Tobacco use date assessed 05/11/25 05/11/25 15:36 Patient Tobacco Use Status Never used Tobacco 05/11/25 15:32 e-Cigarette/Vaping Use Former Use 05/11/25 15:32 Thrive Assessment: Date of Thrive Assessment Date Thrive assessed 02/27/25 10/13/25 15:32 Currently or been in a relationship where the following occur: I choose not to answer Const General: no acute distress and alert Orientation/consciousness: patient oriented x3 HENMT Ears: external ears normal General nose exam: Normal external nose present Mouth: Normal oral and palatal mucosa present, oropharynx normal and moist mucous membranes Eyes General: appearance normal, both eyes and all related structures Neck Neck: Yes full ROM, Yes no lymphadenopathy and Yes supple Resp Effort & Inspection: normal respiratory effort and able to speak in complete sentences Auscultation: clear to auscultation bilaterally Cardio Rate: regular rate Rhythm: regular rhythm Heart sounds: S1 normal heart sound present and S2 normal heart sound present GI Palpation (GI): Soft to palpation and nontender Auscultation: normal bowel sounds Skin General skin exam: no rashes or lesions noted Lesions: lesion noted (Skin tags on neck and chest) Neuro General: patient oriented x3, gait normal, tone normal, moves all extremities, Normal light touch and pain sensation and no focal motor deficits Cranial nerves: Yes CN's II-XII intact bilaterally Cognition (Neuro): normal cognition Extrem General: Yes full ROM, Yes no joint enlargement, Yes no clubbing, cyanosis or edema and Yes no calf tenderness Psych Appearance: grossly normal and well kempt Mental Status: mental status grossly normal Speech and movement: Normal speech and movement present Affect: normal affect Coding Level of Care Code Est Pt Level 4 (17046) Diagnoses Depression with anxiety F41.8 Assessment & Plan Assessment & Plan (1) Depression with anxiety: Comment: Uses marijuana which helps control her anxiety and depression Code(s): F41.8 - Other specified anxiety disorders Category: Medical Plan: Prescription started for sertraline and using clonazepam as needed. We reviewed the importance of therapy and behavioral strategies to manage anxiety. I explained the use of propranolol for social anxiety and advised on the potential risks of benzodiazepine dependency. Follow-up was scheduled in four weeks to assess the effectiveness of the treatment plan and make necessary adjustments. Patient was informed and verbally consented to the use of an ambient scribe for clinic note documentation during this visit. Medications: New propranolol 10 mg (1/2 x 20 mg) PO BID 60 tabs 0RF sertraline Take half a tablet or 25 mg once a initially on the 1st week, then may increase it to a full dose of 15 mg afterwards 50 mg PO DAILY 30 tabs 0RF clonazepam (Klonopin) 0.5 mg PO DAILY PRN 10 tabs 0RF acute anxiety attacks
[2025-05-11 15:41] VITALS: BP 114/68; PULSE 87; RESP 16; TEMP 37.1; O2SAT 99; BMI 31.2
== END 2025-05-11 16:02 | disposition home or self-care (01) ==
LOC: HO.HMCC 14:52
PROVIDERS: Visit Provider Internal Medicine
DX: F41.8 Other specified anxiety disorders (principal)

== ENCOUNTER → 2025-05-11 14:52 | Outpatient (BNVA) | payer OTHER, SELFPAY | PROVIDERS: Visit Provider Internal Medicine | DX: F41.0 Panic disorder [episodic paroxysmal anxiety] (principal); F41.8 Other specified anxiety disorders | CPT/HCPCS: 99212 ==

== ENCOUNTER 2025-06-08 15:30 | Outpatient (AMB) | payer OTHER, SELFPAY ==
--- NOTE | 2025-06-08 15:45 | MHC.PC.OV ---
Vital Signs 06/08/25 15:46 Height 5 ft 7 in Weight 198 lb BMI 31.0 BP 110/66 Blood Pressure Location Lt brachial Position Sitting Respiration 15 Pulse 69 Pulse Source Pulse Oximeter Temp 98.4 F Temp Source Oral Pulse Oximetry (%) 95 Oxygen Delivery Method Room Air Intake Visit Reasons: 1M follow up Intake Note: Pt is here today for her 1mo. f/u Billing Representative Required: No Allergies No Known Allergies Allergy (Verified 06/08/25 15:47) Medication List - Last Reconciled 06/14/25 by Nellie Mckeon MD etonogestrel-ethinyl estradiol 0.12-0.015 mg/24 hr vag rings vaginal famotidine 40 mg PO BEDTIME propranolol 10 mg (1/2 x 20 mg) PO BID sertraline 100 mg PO DAILY trazodone 50 mg PO BEDTIME PRN Tobacco use date assessed: 06/03/25 Dental Screening Dental Screen Date: 06/08/25 Did you have a dental visit in the last 12 months?: Yes Did you have a dental problem in the last 6 months where you did not have access to dental care?: Yes Was dental information given to patient?: Patient has dentist HPI 1M follow up HPI Details The patient is a 24-year-old female presenting for follow-up of anxiety and insomnia. She reports having anxiety or panic attacks every two to three days. She has been taking Klonopin 0.5 mg but finds it ineffective, and she has been taking propranolol half a tablet twice daily, which has reduced the frequency of her palpitations. She also takes sertraline and has tolerated it without side effects. The patient has an upcoming therapy appointment scheduled for June 29. The patient reports an ongoing issue with poor sleep for the last few years, which she previously thought was normal. She wakes up two to three times nightly, sometimes staying awake for one and a half to two hours before being able to fall back asleep. She denies snoring or waking up gasping for breath but feels exhausted upon waking and very sleepy during the day, requiring naps. She has a history of taking melatonin since childhood, which helps her fall asleep but not stay asleep. The patient was recently seen by dermatology and diagnosed with seborrheic dermatitis on her scalp and in her ears. She was prescribed ketoconazole shampoo and a scalp oil. She also notes a small, itchy, non-spreading cluster of bumps on her hand. A previous referral to general surgery regarding a concern on her rib determined it was a normal anatomical variant of her rib, which becomes prominent when she bends. Recent lab work from May 06 showed normal electrolytes, kidney function, liver enzymes, glucose, thyroid function, and CBC. [facility] Medical History (Updated 06/14/25 @ 20:55 by Nellie Mckeon MD) Seborrheic dermatitis Frequent nocturnal awakening Disturbed sleep rhythm Chronic heartburn Intermittent palpitations Mass of anterior abdominal wall Depression with anxiety Surgical History No pertinent past surgical history Family History Mother Substance use disorder Mental health disorder Depression with anxiety Sister Substance use disorder Mental health disorder Depression with anxiety Maternal Grandmother Mental health disorder Depression with anxiety Essential hypertension Hypercholesterolemia CAD (coronary artery disease) Alzheimer's disease Maternal Aunt Mental health disorder Depression with anxiety Social History Housing: Apartment Patient Tobacco Use Status: Never used Tobacco e-Cigarette/Vaping Use: Former Use Substance Use Type: Marijuana service: No Current occupational status: employed Cognitive needs: No Hearing needs: No Vision needs: Yes Questionnaire PHQ-9 Over the last 2 weeks, how often have you been bothered by any of the following problems? 1. Little interest or pleasure in doing things: several days 2. Feeling down, depressed, or hopeless: several days 3. Trouble falling or staying asleep, or sleeping too much: nearly every day 4. Feeling tired or having little energy: several days 5. Poor appetite or overeating: nearly every day 6. Feeling bad about yourself - or that you are a failure or have let yourself or your family down: several days 7. Trouble concentrating on things, such as reading the newspaper or watching television: not at all 8. Moving or speaking so slowly that other people could have noticed. Or the opposite - being so fidgety or restless that you have been moving around a lot more than usual: not at all 9. Thoughts that you would be better off or of hurting yourself in some way: not at all Total score: 10 Depression Screening Interpretation: Positive Depression Screening Follow-up: Existing condition and Declines treatment (Uses marijuana to control symptoms, helping) Depression Screening Done: Yes Source: Developed by Drs. Joey Ghotra, Madelyn Plummer, Petros Peck and colleagues, with an educational lise from [employer]. Thrive Questionnaire Date Thrive assessed: 09/25/24 I am a: Patient What is your living situation today?: I have a steady place to live Within the past 12 months, did the food you bought not last and you didn't have the money to get more?: Sometimes True Within the past 12 months, did you worry whether your food would run out before you got money to buy more?: Sometimes True Do you have trouble paying for medicines?: No Do you have trouble getting transportation to medical appointments?: No Do you have trouble paying your heating and electricity bill?: No Do you have trouble taking care of your child, family member or friend?: No Do you have trouble with day-to-day activities such as bathing, preparing meals, shopping, managing finances, etc.?: No Are you currently unemployed and looking for a job?: No Are you interested in more education?: Yes Please select the resources that you would like help with: None Currently or been in a relationship where the following occur: I choose not to answer THRIVE Score: 2 AUDIT C Alcohol Use Questionnaire (AUDIT-C) 2. How many drinks containing alcohol do you have on a typical day when you are drinking?: 1 or 2 3. How often do you have six or more drinks on one occasion?: Never Total Score: 0 WENDY-7 AMB Questionnaire WENDY-7 Date WENDY - 7 assessed: 06/08/25 Feeling nervous, anxious, or on edge: 0 = Not at all Not being able to stop or control worryin = Not at all Worrying too much about different things: 0 = Not at all Trouble relaxin = Not at all Being so restless that it is hard to sit still: 0 = Not at all Becoming easily annoyed or irritable: 0 = Not at all Feeling afraid as if something awful might happen: 0 = Not at all Total WENDY-7 score (0-4 normal; 5-9 mild; 10-14 moderate; 15-21 severe): 0 Source: Developed by Drs. Joey Ghotra, Madelyn Plummer, Petros Peck and colleagues, with an educational lise from [employer]. WENDY-7 Assessment Billing WENDY-7 Assessment Tool: WENDY-7 Assessment 57061 Review of Systems Const All systems reviewed & are unremarkable except as noted in HPI and below Physical exam (Primary Care) Vital Signs: Last Vital Signs Temp 98.4 F 06/08/25 15:46 Pulse 69 06/08/25 15:46 Resp 15 06/08/25 15:46 BP 110/66 06/08/25 15:46 Pulse Ox 95 06/08/25 15:46 Oxygen Delivery Method Room Air 06/08/25 15:46 BMI result Body Mass Index 31.0 Tobacco/Smoking Status: Tobacco use Status Tobacco use date assessed 06/03/25 06/08/25 15:51 Patient Tobacco Use Status Never used Tobacco 06/08/25 15:51 e-Cigarette/Vaping Use Former Use 06/08/25 15:51 PHQ-9: PHQ-9 Score PHQ-9: Total score 10 06/08/25 16:15 Depression Screening Interpretation: Positive Depression Screening Follow-up: Existing condition and Declines treatment (Uses marijuana to control symptoms, helping) Thrive Assessment: Date of Thrive Assessment Date Thrive assessed 09/25/24 06/08/25 15:51 Currently or been in a relationship where the following occur: I choose not to answer Const General: no acute distress and alert Orientation/consciousness: patient oriented x3 HENMT Ears: external ears normal General nose exam: Normal external nose present Mouth: Normal oral and palatal mucosa present, oropharynx normal and moist mucous membranes Neck Neck: Yes full ROM, Yes no lymphadenopathy and Yes supple Resp Effort & Inspection: normal respiratory effort and able to speak in complete sentences Auscultation: clear to auscultation bilaterally Cardio Rate: regular rate Rhythm: regular rhythm Heart sounds: S1 normal heart sound present and S2 normal heart sound present GI Palpation (GI): Soft to palpation and nontender Auscultation: normal bowel sounds Skin General skin exam: no rashes or lesions noted Lesions: lesion noted (Skin tags on neck and chest) Neuro General: patient oriented x3, gait normal, tone normal, moves all extremities, Normal light touch and pain sensation and no focal motor deficits Cranial nerves: Yes CN's II-XII intact bilaterally Cognition (Neuro): normal cognition Extrem General: Yes full ROM, Yes no joint enlargement, Yes no clubbing, cyanosis or edema and Yes no calf tenderness Psych Appearance: grossly normal and well kempt Mental Status: mental status grossly normal Speech and movement: Normal speech and movement present Affect: normal affect Coding Level of Care Code Est Pt Level 4 (46693) Complex EM visit Add On G2211 Diagnoses Disturbed sleep rhythm G47.20 Frequent nocturnal awakening G47.00 Depression with anxiety F41.8 Additional Codes WENDY-7 Assessment Billing - WENDY-7 Assessment Tool: WENDY-7 Assessment 46206 ([id number]) Assessment & Plan Assessment & Plan (1) Disturbed sleep rhythm: Code(s): 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 Stopped Klonopin 0.5 mg i has it was not helping her, and prescribed trazodone 50 mg to take 1 tablet at bedtime as needed for difficulty sleeping. We discussed that her anxiety may be linked to her poor sleep and that correcting her sleep cycle could resolve the anxiety. Schedule follow-up appointment in 2 months Referred to sleep Medicine for further evaluation management regarding her long-standing sleep disturbances The patient was informed that someone will call her to schedule the study and was given a number to call if she does not hear from them within 10 days. We reviewed her recent lab results from another facility, which were reassuringly normal. I informed her that I am ordering a fasting cholesterol panel and a Hepatitis B and C profile. I advised her to follow up in two months for an in-person visit to assess her progress. Patient was informed and verbally consented to the use of an ambient scribe for clinic note documentation during this visit. Orders: Referrals Sleep Medicine Referral G47.00 - Insomnia, unspecified, G47.20 - Circadian rhythm sleep disorder, unspecified type Medications: New trazodone 50 mg PO BEDTIME PRN 30 tabs 0RF sleep Changed From sertraline Take half a tablet or 25 mg once a initially on the 1st week, then may increase it to a full dose of 15 mg afterwards 50 mg PO DAILY 30 tabs 0RF To sertraline 100 mg PO DAILY 30 tabs 1RF Discontinued clonazepam (Klonopin) Discontinued Reason: Doctor's Order 0.5 mg PO DAILY PRN 10 tabs 0RF acute anxiety attacks
[2025-06-08 15:46] VITALS: BP 110/66; PULSE 69; RESP 15; TEMP 36.9; O2SAT 95; BMI 31.0
== END 2025-06-08 16:18 | disposition home or self-care (01) ==
LOC: HO.HMCC 15:31
PROVIDERS: Visit Provider Internal Medicine
DX: G47.20 Circadian rhythm sleep disorder, unspecified type (principal); G47.00 Insomnia, unspecified; F41.8 Other specified anxiety disorders

== ENCOUNTER → 2025-06-08 15:30 | Outpatient (BNVA) | payer OTHER, SELFPAY | PROVIDERS: Visit Provider Internal Medicine | DX: F41.8 Other specified anxiety disorders (principal); G47.20 Circadian rhythm sleep disorder, unspecified type; G47.00 Insomnia, unspecified | CPT/HCPCS: 96127; 99212 ==

== ENCOUNTER 2025-06-23 14:47 | Outpatient (AMB) | payer OTHER, SELFPAY ==
--- OUTSIDE RECORDS SUMMARY | 2024-02-15 10:00 | XMS_ITS ---
Author Organization [facility] Address [address] [place] [address] Care Team Providers Care Ibm Websphere Commerce Developer Name Role Phone CONG RAPP Unavailable [phone] REASON FOR VISIT Annual TACTICAL INTELLIGENCE OFFICER Physical Medications Medication SIG (Take, Route, Frequency, Duration) Notes Start Date End Date Status Lotrisone 1-0.05% 1 application to affected area externally Twice a day; Duration: 7 days 11/08/2021 Unknown Fluconazole 150 MG 1 tablet PO now and in 3d; Duration: 3 days 10/19/2021 Unknown metroNIDAZOLE 500 MG 1 tablet Orally Twi ce a day; Duration: 7 days 10/19/2021 Unknown MetroGel-Vaginal 0.75 % 1 application at bedtime Vaginal Once a day; Duration: 5 day(s) 03/29/2021 Unknown NuvaRing 0.12-0.015 MG/24HR 1 ring Vagin al _insert for 3w, remove fourth week; Duration: 84 days 07/11/2016 Unknown Multivitamin Adult - Orally Unknown Encounters Encounter Location Date Provider Diagnosis [address] [address] 02/15/2024 CONG RAPP Encounter for gynecological examination (general) (routine) without abnormal findings Z01.419 and Encounter for screening for infections with a predominantly sexual mode of transmission Z11.3 Assessments Encounter Date Diagnosis (ICD Code) Assessment Notes Treatment Notes Treatment Clinical Notes Section Notes 02/15/2024 Encounter for gynecological examination (general) (routine) without abnormal findings (ICD-10 - Z01.419) Discussed cervical cancer screening with cytology every 3 years as per ASCCP guidelines. Advised continued annual pelvic exams. Patient encouraged to increase her level of exercise. SBE technique encouraged/tau ght. Safe sexual practices and STI prevention discussed. 02/15/2024 Encounter for screening for infections with a [...] Follow Up: 1 Year, Reason: Y early Treasury Agent Exam Provider Name:CONG Vicente, 06/30/2025 03:30:00 PM, [address], [address], [place], [address], Progress Notes * CATHERINE DELEONDOB:11/2000 (24 yo F)Acc No.[id number]:02/15/2024 PROGRESS NOTES Patient: Alice LEON CATHERINE RODRIGUEZ Provider: Roopa RAPP MD :2000 A ge:23 Y S ex:Female Date:02/15/2024 Address:[address] [place], [place] [phone] Subjective: * Chief Complaints: * 1 . Annual TACTICAL INTELLIGENCE OFFICER Physical. 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 S he has been in [...] days/week by walking/hiking. * ROS: A nnual Treasury Agent Exam ROS: Bowel habit changes d enies. [...] sychiatric: Denies A nxiety. * Medical History: E xcessive and frequent menstruation with irregular cycle, Superficial (introital) dyspareunia, Unspecified abdominal pain, Gonococcal infection of lower genitourinary tract, unspecified, Other specified abnormal uterine and vaginal bleeding, Mastodynia, COVID-19. * Treasury Agent History: G ravida/ Para 0 /0. S exual activity c urrently sexually active. L ast Pap Smear: NIL. M ammogram: n ot due per age. L MP and menses , 04/27/2022, 03/27/2022, 10/25/2021, 06/20/22, 05/2021, 03/15/2021, 11/10/20, regular. H istory of STD's: G onorrhea Treated 07/16/20. B irth Control: N uva Ring. G ardasil: s eries completed. * OB History: T otal pregnancies G 0 P0000. * Medications: U nknown Multivitamin Adult - Tablet Orally , Unknown NuvaRing 0.12-0.015 MG/24HR Ring 1 ring Vaginal _insert for 3w, remove fourth week , Unknown Lotrisone 1-0.05% cream 1 application to affected area externally Twice a day , Unknown Fluconazole 150 MG Tablet 1 tablet PO now and in 3d , Unknown metroNIDAZOLE 500 MG Tablet 1 tablet Orally Twice a day , Unknown MetroGel-Vaginal 0.75 % Gel 1 application at bedtime Vaginal Once a day Objective: * Vitals: * Examination: G eneral Examination: GENERAL APPEARANCE: i n no acute distress,well developed, well nourished,compo conveyor operator present in room. HEAD: n ormocephalic, atraumatic. [...] * Follow Up: 1 Year (Reason: Yearly Treasury Agent Exam) * Images: Billing Information: * Visit Code: 51234 Preventive Care Est Pt. Age 18-39. * Procedure Codes: * Electronic signature of CONG RAPP MD on 06/23/2025 at 06:34 PM EST Sign off status: Pending * Provider: Roopa RAPP MD Date: 0 02/15/2024 Generated for Kaylan ocampo/Violetta/Dararansmitting on: 08/23/2024 06:34 PM EST History and Physical Notes * HPI (History of Present Illness) Category Sub-Category Detail Notes Category Not es Constitutional Catherine is a 23yo G0 with LMP who presents for her yearly administrative services director annual exam. She has been in state [...] General Examination GENERAL APPEARANCE: in no ac sera distress, well developed, well nourished, compo conveyor operator present in room HEAD: normocephalic, atrau matic [...]
--- OUTSIDE RECORDS SUMMARY | 2024-03-04 10:10 | XMS_ITS ---
Author Organization [facility] [facility] Address [address] [place] [address] Care Team Providers Care Assembler Convertible Top Name Role Phone RAPP, CONG Unavailable [phone] REASON FOR VISIT Annual BOILER TENDERS SUPERVISOR Physical Encounters Encounter Location Date Provider Diagnosis [facility] [address] [place] [address] 03/04/2024 CONG RAPP Encounter for gynecological examination (general) (routine) without abnormal findings Z01.419 and Encounter for screening for infections with a predominantly sexual mode of transmission Z11.3 Assessments Encounter Date Diagnosis (ICD Code) Assessment Notes Treatment Notes Treatment Clinical Notes Section Notes 03/04/2024 Encounter for gynecological examination (general) (routine) without abnormal findings (ICD-10 - Z01.419) Discussed cervical cancer screening with cytology every 3 years as per ASCCP guidelines. Advised continued annual pelvic exams. Patient encouraged to increase her level of exercise. SBE technique encouraged/tau ght. Safe sexual practices and STI prevention discussed. 03/04/2024 Encounter for screening for infections with a [...] Follow Up: 1 Year, Reason: Y early Prepress Proofer Exam Provider Name:CONG Vicente, 06/30/2025 03:30:00 PM, [address], [address], [place], [address], Progress Notes * CATHERINE DELEONDOB:11/2000 (24 yo F)Acc No.[id number]:03/04/2024 PROGRESS NOTES Patient: CATHERINE HERNANDEZ Provider: Roopa RAPP MD :2000 A ge:23 Y S ex:Female Date:03/04/2024 Address:[address] [place] [address] Subjective: * Chief Complaints: * 1 . Annual BOILER TENDERS SUPERVISOR Physical. * HPI: C onstitutional: Justin zambrano is a 23yo G0 with LMP who presents for her yearly social services aide annual exam. S he has been in [...] days/week by walking/hiking. * ROS: A nnual Prepress Proofer Exam ROS: Bowel habit changes d enies. [...] uterine and vaginal bleeding, Mastodynia, COVID-19. * Prepress Proofer History: G ravida/ Para 0 /0. S [...] History: T otal pregnancies G 0 P0000. Objective: * Vitals: * Examination: G eneral Examination: GENERAL APPEARANCE: i n no acute distress,well developed, well nourished,hand chain maker present in room. HEAD: n ormocephalic, atraumatic. [...] * Follow Up: 1 Year (Reason: Yearly Prepress Proofer Exam) * Images: Billing Information: * Visit Code: 76820 Preventive Care Est Pt. Age 18-39. * Procedure Codes: * Electronic signature of CONG RAPP MD on 06/23/2025 at 06:34 PM EST Sign off status: Pending * Provider: Roopa RAPP MD Date: 0 03/04/2024 Generated for Kaylan ocampo/Violetta/eTransmitting on: 08/23/2024 06:34 PM EST History and Physical Notes * HPI (History of Present Illness) Category Sub-Category Detail Notes Category Not es Constitutional Catherine is a 23yo G0 with LMP who presents for her yearly social services aide annual exam. She has been in state [...] [place] distress, well developed, well nourished, hand chain maker present in room HEAD: normocephalic, atrau matic [...]
--- OUTSIDE RECORDS SUMMARY | 2025-04-17 10:00 | XMS_ITS ---
Author Organization [facility] Address [address] [place] [address] Care Team Providers Care Slackline Operator Name Role Phone RAPP, CONG Unavailable [phone] REASON FOR VISIT Annual SUPERINTENDENT TRANSMISSION Physical Encounters Encounter Location Date Provider Diagnosis [facility] [employer] [facility] [address] [place] [address] 04/17/2025 CONG RAPP Encounter for gynecological examination (general) (routine) without abnormal findings Z01.419 and Encounter for screening for infections with a predominantly sexual mode of transmission Z11.3 Assessments Encounter Date Diagnosis (ICD Code) Assessment Notes Treatment Notes Treatment Clinical Notes Section Notes 04/17/2025 Encounter for gynecological examination (general) (routine) without abnormal findings (ICD-10 - Z01.419) Discussed cervical cancer screening with cytology every 3 years as per ASCCP guidelines. Advised continued annual pelvic exams. Patient encouraged to increase her level of exercise. SBE technique encouraged/tau ght. Safe sexual practices and STI prevention discussed. 04/17/2025 Encounter for screening for infections with a [...] Follow Up: 1 Year, Reason: Y early Blind Hooker Exam Provider Name:CONG Vicente, 06/30/2025 03:30:00 PM, [address], [address], [place], [address], Progress Notes * CATHERINE DELEONDOB:11/2000 (24 yo F)Acc No.[id number]:04/17/2025 PROGRESS NOTES Patient: CATHERINE HERNANDEZ Provider: Roopa RAPP MD :2000 A ge:24 Y S ex:Female Date:04/17/2025 Address:[address] [place] [address] Subjective: * Chief Complaints: * 1 . Annual SUPERINTENDENT TRANSMISSION Physical. 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 S he has been in state of good health since her last exam. She has the following concerns: *she gets discomfort in her ovaries - about twice weekly, it is not dependent on her control. S he has received just one dose of the Moderna Covid-19 vaccine. R elationship status: *partnered for nearly 3 years. She is sexually active. Sexual partner(s): male. She does not wish to have STI testing. M enses: *monthly, lasting 5-7 days, moderate to heavy?flow. No intermenstrual bleeding. C ontraception: *Nuvaring - happy and consistent. Would like refills. T he patient has never had an abnormal pap smear. Her most recent pap smear was 04/15/24 - NIL . Next due for pap in 2026. T he patient does* exercise. She exercises x 5 days/week by walking/hiking at [facility]. * ROS: A nnual Blind Hooker Exam ROS: Bowel habit changes d enies. [...] i n no acute distress,well developed, well nourished,chief ultrasound technologist present in room. HEAD: n ormocephalic, atraumatic. [...] * Follow Up: 1 Year (Reason: Yearly Blind Hooker Exam) * Images: Billing Information: * Visit Code: 74935 Preventive Care Est Pt. Age 18-39. * Procedure Codes: * Electronic signature of CONG RAPP MD on 06/23/2025 at 06:34 PM EST Sign off status: Pending * Provider: Roopa RAPP MD Date: 0 04/17/2025 Generated for Printi ng/Fadeniag/eTransmitting on: 1 08/23/2024 06:34 PM EST History and Physical Notes * Examination Category Sub-Category Detail Notes Category Not es General Examination GENERAL APPEARANCE: in no ac [place] distress, well developed, well nourished, chief ultrasound technologist present in room HEAD: normocephalic, atrau matic [...]
--- NOTE | 2025-06-23 15:04 | MHC.OFFVIS ---
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 She goes to bed 9-12 and wakes up at 10am. wakes up two to three times nightly, sometimes staying awake for one and a half to two hours before being able to fall back asleep. snoring/apnea/gasping. Exhausted upon waking and very sleepy during the day, requiring naps 1-4hrs. She has a history of taking melatonin since childhood, which helps her fall asleep but not stay asleep. No headaches. States trazodone for sleep does not work. She states makes her feel dizzy. Accompanied by: Spouse Allergies No Known Allergies Allergy (Verified 06/23/25 15:08) HPI Comments Details: 24 year old female presents for an evaluation of sleep apnea by her PCP Dr. Hernández. 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 She has trouble falling asleep and staying asleep with multiple arousals at night for at least 3 years now. She goes to bed at 9pm to 12pm, she wakes up at least 1-3 times a night. She snores loudly and gasps for air, and has witnessed apneas. She has bruxism, does not wear a mouth guard. She has acid reflux, worse when laying down, takes famotidine and this helps to alleviate symptoms. She has RLS symptoms and has to shake her feet/legs until she falls asleep and this is soothing. She has anxiety, racing thoughts panic attacks, SOB, and has improved since starting sertraline 100mg, now has panic attacks 2x a week and is still waking up at night due to intrusive thoughts. She tried trazadone which was ineffective. She is chronically fatigued and takes naps from 30min to 4 hours if she has not slept well the evening prior. Memory is good, however gets lost in conversation and has difficult recalling information. She multi-tasks and will lose focus or concentration.Denies smoking cigarettes, and alcohol she smokes MJ and edibles daily. + Mom is in active addiction. She denies morning headaches, dizziness, vertigo, balance and gait is stable. [facility] Medical History Seborrheic dermatitis Frequent nocturnal awakening Disturbed sleep rhythm Chronic heartburn Intermittent palpitations Mass of anterior abdominal wall Depression with anxiety Surgical History No pertinent past surgical history Family History Mother Substance use disorder Mental health disorder Depression with anxiety Sister Substance use disorder Mental health disorder Depression with anxiety Maternal Grandmother Mental health disorder Depression with anxiety Essential hypertension Hypercholesterolemia CAD (coronary artery disease) Alzheimer's disease Maternal Aunt Mental health disorder Depression with anxiety Social History Housing: Apartment Patient Tobacco Use Status: Never used Tobacco e-Cigarette/Vaping Use: Former Use Substance Use Type: Marijuana service: No Current occupational status: employed Cognitive needs: No Hearing needs: No Vision needs: Yes Physical Exam Vital Signs: Last Vital Signs Pulse 88 06/23/25 15:05 BP 124/76 06/23/25 15:05 Pulse Ox 96 06/23/25 15:05 Oxygen Delivery Method Room Air 06/23/25 15:05 BMI result Body Mass Index 30.8 Const General: cooperative, comfortable and no acute distress Nutritional Appearance: average body habitus Orientation/consciousness: patient oriented x3 HEENT Face and sinus: Yes face symmetric Teeth and gingiva: other (mallampti 4) Eyes Pupils: Equal, round and reactive pupils present Neck Neck: Yes full ROM Resp Effort & Inspection: normal respiratory effort and able to speak in complete sentences Neuro General: patient oriented x3 and moves all extremities Cranial nerves: Yes Equal, round and reactive pupils present, Yes Normal accommodation reflex present, Yes Normal facial strength present, Yes Ability to bilaterally rotate head present and Yes Ability to bilaterally elevate shoulders present Cognition (Neuro): normal cognition Gait exam (Neuro): Normal gait present Motor exam (neuro): 5/5 motor strength present throughout and Normal motor muscle tone present throughout Psych Appearance: grossly normal Speech and movement: Normal speech and movement present Affect: normal affect Thought process: Normal thought process present Results Reviewed Results Reviewed: labs reviewed with pt. Assessment & Plan Assessment & Plan (1) Excessive daytime sleepiness: Code(s): G47.19 - Other hypersomnia Category: Medical (2) Loud snoring: Code(s): R06.83 - Snoring Category: Medical Plan HST r/o YESSY Labs r/o Chronic fatigue Patient Instructions: Sleep Hygiene provided: set a scheduled bedtime and wake time to help regulate the circadian rhythm and balance the release of pituitary hormones. Sleep in a dark room, temperatures below 68 degrees, and no devices n bed. Limit caffeinated products 6 hours prior to bed, and limit fluids 2-4 hours prior to bed. Gentle night yoga, diffusing essential oils, and playing soft music can be relaxing. Please complete the following fasting labs to rule out deficiencies. CBC/CMP/ B12/ Vit D/ TSH/ Homocysteine and MMA/ Ferritin. Coding Level of Care Code New Pt Level 4 (69175) Diagnoses Excessive daytime sleepiness G47.19 Loud snoring R06.83 Sleep Questionnaire Difficulty falling asleep: Yes Difficulty staying asleep?: Yes Number of arousals: 1-3 Snoring: Yes Witnessed apneas: Yes Gasping arousals: Yes Nocturia: No GERD: Yes Vivid dreams: Yes Acting out dreams: No Abnormal behavior in sleep: No Abnormal movements in sleep: No Morning headaches: No Excessive daytime sleepiness: Yes Daytime naps: Yes Restless legs: No Hallucinations: No Sleep paralysis: No Drop attacks: No Sleep Study: No CPAP: No
[2025-06-23 15:05] VITALS: BP 124/76; PULSE 88; O2SAT 96; BMI 30.8
--- OUTSIDE RECORDS SUMMARY | 2025-06-23 18:35 | XMS_ITS | Patient Health Record ---
Author Organization [facility] Address [address] [place] [address] Care Team Providers Care Primary Care Sales Representative Name Role Phone CONG RAPP Unavailable [phone] Allergies No Known Allergies Reason For Referral No Information Medications Medication SIG (Take, Route, Frequency, Duration) Notes Start Date End Date Status Etonogestrel-Ethinyl Estradiol 0.12-0.015 MG/24HR [address] for 3 weeks, remove, and replace with a new ring after 7 day break Vaginal; Duration: 90 days Active Social History Tobacco Use: Social [...] Risk Notes Problem Intermenstrual bleeding - irregular (61619810) Excessive and frequent menstruation with irregular cycle (N92.1) Active confirmed Problem Abnormal vaginal bleeding (008333676) Other specified abnormal uterine and vaginal bleeding (N93.8) Active confirmed Problem Pain in female genitalia on intercourse (39320377) Superficial (introital) dyspareunia (N94.11) Active confirmed Problem COVID-19 (523236929) COVID-19 (U07.1) Active confirmed Encounters Encounter Location Date Provider Diagnosis [facility] [address] [id number] 05/12/2025 CONG RAPP Encounter for surveillance of vaginal ring hormonal contraceptive device Z30.[address] [id number] 05/12/2025 CONG RAPP Encounter for surveillance of vaginal ring hormonal contraceptive device Z30.44 Assessments Encounter Date Diagnosis (ICD Code) Assessment Notes Treatment Notes Treatment Clinical Notes Section Notes 05/12/2025 Encounter for surveillance of vaginal ring hormonal contraceptive device (ICD-10 - Z30.44) 05/12/2025 Encounter for surveillance of vaginal ring hormonal contraceptive device (ICD-10 - Z30.44) Plan Of Treatment Pending Test Test Name [...] Details Provider Name:CONG Vicente, 06/30/2025 03:30:00 PM, [address], [address], [place], [address], Insurance Providers Payer Name Payer Address Payer Phone Subscriber Number Group Number Insured Name Patient Relationship to Insured Coverage Start Date Coverage End Date [facility] [address] [address] [place] [address] [id number] CATHERINE DELEON Self - patient is the insured Medications Administered Medication Instructions Date of Administration Dosage Notes CEFTRIAXONE 07/16/2020 250 mg Medical (General) History Medical History History ICD Code Excessive and frequent menstruation with irregular cycle N92.1 Superficial (introital) dyspareunia N94. 11 Unspecified abdominal pain R10.9 Gonococcal infection of lower genitourin arjeev tract, unspecified A54.00 Other specified abnormal uterine and vag inal bleeding N93.8 Mastodynia N64.4 COVID-19 U07.1 Surgical History Surgery Date(Month/Year)
== END 2025-06-23 15:55 | disposition home or self-care (01) ==
LOC: HO.HSMS 14:48
PROVIDERS: Visit Provider Physician Assistant Medical
DX: G47.19 Other hypersomnia (principal); R06.83 Snoring
CPT/HCPCS: 99204

== ENCOUNTER → 2025-06-23 14:47 | Outpatient (BNVA) | payer OTHER, SELFPAY | PROVIDERS: Visit Provider Physician Assistant Medical | DX: R06.83 Snoring (principal); G47.19 Other hypersomnia | CPT/HCPCS: 99202 ==

== ENCOUNTER 2025-07-07 10:21 | Outpatient (REF) | payer OTHER, SELFPAY ==
[2025-07-10 11:23] LABS: TS Negative Control Passed; TS Panel A 1; TS Panel B 0; TS Positive Control Passed; TSpotTB Negative (Negative)
== END 2025-07-07 10:22 | disposition home or self-care (01) ==
LOC: HO.HMGCLDS 10:21
PROVIDERS: PCP Internal Medicine; Visit Provider Internal Medicine
DX: Z11.1 Encounter for screening for respiratory tuberculosis (principal)
CPT/HCPCS: 36415; 86481